=== PATIENT | female | born 2005 | race Caucasian/White ===

== ENCOUNTER 2023-04-13 08:22 | Outpatient (AMB) | payer OTHER, SELFPAY ==
[2023-04-13 08:32] VITALS: BP 116/72; PULSE 81; O2SAT 100; BMI 21.9
--- NOTE | 2023-04-13 08:32 | MHC.PC.OV ---
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 No Known Allergies Allergy (Verified 04/13/23 08:39) Medication List - Last Reconciled 04/13/23 by LARISA Addison cetirizine (Zyrtec) 10 mg PO DAILY PRN norethindrone ac-eth estradiol 0.5-2.5 mg-mcg 1 tab PO DAILY Tobacco use date assessed: 04/13/23 Dental Screening Dental Screen Date: 04/13/23 Did you have a dental visit in the last 12 months?: Yes Did you have a dental problem in the last 6 months where you did not have access to dental care?: No Was dental information given to patient?: Patient has dentist 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 Previous PCP at [facility], last visit couple years ago. Patient is up-to-date with immunizations. She reports eye exam and dental exam in the last year. In addition, patient reports intermittent bilateral ear fullness sensation for the past some time, she reports using Flonase nasal spray in the past which did not help her much. She denies shortness of breath or chest pain. Patient lives with her stepmother and father. She works and go to school. [facility] Medical History No known problems Surgical History No pertinent past surgical history Family History Mother No problems noted. Father No problems noted. Social History Housing: House Patient Tobacco Use Status: Never used Tobacco service: No Current occupational status: employed Cognitive needs: No Hearing needs: No Vision needs: No Questionnaire PHQ-9 Over the last 2 weeks, how often have you been bothered by any of the following problems? 1. Little interest or pleasure in doing things: not at all 2. Feeling down, depressed, or hopeless: not at all 3. Trouble falling or staying asleep, or sleeping too much: not at all 4. Feeling tired or having little energy: not at all 5. Poor appetite or overeating: not at all 6. Feeling bad about yourself - or that you are a failure or have let yourself or your family down: not at all 7. Trouble concentrating on things, such as reading the newspaper or watching television: not at all 8. Moving or speaking so slowly that other people could have noticed. Or the opposite - being so fidgety or restless that you have been moving around a lot more than usual: not at all 9. Thoughts that you would be better off or of hurting yourself in some way: not at all Total score: 0 Depression Screening Interpretation: Negative 11511 - PHQ-9 Billing: Yes Source: Developed by Drs. Sammy Nelson, Yael Abdul, Jeffrey Garcias and colleagues, with an educational naseem from [employer]. Thrive Questionnaire Date Thrive assessed: 04/13/23 I am a: Patient What is your living situation today?: I have a steady place to live Within the past 12 months, did the food you bought not last and you didn't have the money to get more?: Never true Within the past 12 months, did you worry whether your food would run out before you got money to buy more?: Never true Currently or been in a relationship where the following occur: no concerns reported AUDIT C Alcohol Use Questionnaire (AUDIT-C) 1. How often do you have a drink containing alcohol?: Monthly or less 2. How many drinks containing alcohol do you have on a typical day when you are drinking?: 1 or 2 3. How often do you have six or more drinks on one occasion?: Never Total Score: 1 Score Reviewed/Action Taken: No DEYSI-7 AMB Questionnaire DEYSI-7 Date DEYSI - 7 assessed: 04/13/23 Feeling nervous, anxious, or on edge: 0 = Not at all Not being able to stop or control worryin = Not at all Worrying too much about different things: 0 = Not at all Trouble relaxin = Not at all Being so restless that it is hard to sit still: 0 = Not at all Becoming easily annoyed or irritable: 0 = Not at all Feeling afraid as if something awful might happen: 0 = Not at all Total DEYSI-7 score (0-4 normal; 5-9 mild; 10-14 moderate; 15-21 severe): 0 Source: Developed by Drs. Sammy Nelson, Yael Abdul, Jeffrey Garcias and colleagues, with an educational naseem from [employer]. DEYSI-7 Assessment Billing DEYSI-7 Assessment Tool: DEYSI-7 Assessment 36776 Review of Systems Const Denies body aches, Denies chills, Denies fever(s) and Denies headache(s) Eyes Denies change in vision ENT Reports as per HPI, Denies dizziness, Denies otalgia, Denies headache(s), Denies nasal discharge, Denies sinus pain and Denies sore throat Card Denies chest pain, Denies edema, Denies lightheadedness and Denies dyspnea Resp Denies cough, Denies dyspnea and Denies wheezing GI Denies abdominal pain, Denies constipation, Denies diarrhea, Denies nausea and Denies vomiting Denies dysuria Musc Denies myalgias, Denies numbness and Denies tingling Skin/Breast Denies rash Neuro Denies dizziness, Denies headache(s), Denies numbness and Denies tingling Aller/Immun Denies wheezing Physical exam (Primary Care) Vital Signs: Last Vital Signs Pulse 81 04/13/23 08:32 BP 116/72 04/13/23 08:32 Pulse Ox 100 04/13/23 08:32 Oxygen Delivery Method Room Air 04/13/23 08:32 BMI result Body Mass Index 21.9 Tobacco/Smoking Status: Tobacco use Status Tobacco use date assessed 04/13/23 04/13/23 08:37 Patient Tobacco Use Status Never used Tobacco 04/13/23 08:37 PHQ-9: PHQ-9 Score PHQ-9: Total score 0 04/13/23 08:37 Depression Screening Interpretation: Negative Thrive Assessment: Date of Thrive Assessment Date Thrive assessed 04/13/23 04/13/23 08:37 Currently or been in a relationship where the following occur: no concerns reported Const General: cooperative and no acute distress Orientation/consciousness: patient oriented x3 HENMT Other: Bilateral TM moderately obstructed by cerumen R>L, visualized TMs normal Head: Yes normocephalic and Yes atraumatic Face and sinus: Yes sinuses nontender Mouth: oropharynx normal and moist mucous membranes Throat: Yes posterior oropharynx normal Eyes General: appearance normal, both eyes and all related structures Pupils: Equal, round and reactive pupils present EOM: EOMs intact bilaterally Neck Neck: Yes normal visual inspection, Yes full ROM and Yes no lymphadenopathy Thyroid: Thyroid normal Resp Effort & Inspection: normal respiratory effort and able to speak in complete sentences Auscultation: clear to auscultation bilaterally, no crackles, no rales, no rhonchi and no wheezes Cardio Rate: regular rate Rhythm: regular rhythm Heart sounds: S1 normal heart sound present, S2 normal heart sound present and no murmurs GI Palpation (GI): Soft to palpation, not firm, nontender, no guarding, not rigid and no hepatosplenomegaly Auscultation: normal bowel sounds General: No CVA tenderness Back/Spine/Pelvis Back: No CVA tenderness Skin General skin exam: no rashes or lesions noted Neuro General: patient oriented x3 Cranial nerves: Yes Equal, round and reactive pupils present Gait exam (Neuro): Normal gait present Extrem General: Yes full ROM and No edema Assessment and Plan Assessment & Plan (1) Adult general medical exam: Code(s): Z00.00 - Encounter for general adult medical examination without abnormal findings Plan: Repeat in 1 year (2) Seasonal allergies: Code(s): J30.2 - Other seasonal allergic rhinitis Plan: Continue Zyrtec 10 mg daily p.r.n. (3) Sensation of fullness in both ears: Code(s): H93.8X3 - Other specified disorders of ear, bilateral Plan: Bilateral TM moderately obstructed by cerumen R>L, visualized TMs normal Encouraged patient to try [id number] normal saline nasal spray p.r.n. Patient will be back in 2 weeks for bilateral ear lavage Patient agreed with the plan Orders: Orders Vitamin B12 and Folate Today Z00.00 - Encounter for general adult medical examination without abnormal findings Comprehensive Met. Panel Today Z00.00 - Encounter for general adult medical examination without abnormal findings TSH reflex Free T4 Today Z00.00 - Encounter for general adult medical examination without abnormal findings Vitamin D 25-OH Total Today Z00.00 - Encounter for general adult medical examination without abnormal findings Complete Blood Count Auto Diff Today Z00.00 - Encounter for general adult medical examination without abnormal findings Coding Level of Care Code New Pt Prev Care 18-39yr(38516 Diagnoses Adult general medical exam Z00.00 Seasonal allergies J30.2 Sensation of fullness in both ears H93.8X3 Additional Codes DEYSI-7 Assessment Billing - DEYSI-7 Assessment Tool: DEYSI-7 Assessment 49275 ([id number])
== END 2023-04-13 08:55 | disposition home or self-care (01) ==
PROVIDERS: PCP Nurse Practitioner Family; Visit Provider Nurse Practitioner Family
DX: Z00.00 Encounter for general adult medical examination without abnormal findings (principal); J30.2 Other seasonal allergic rhinitis; H93.8X3 Other specified disorders of ear, bilateral
CPT/HCPCS: 99385

== ENCOUNTER 2023-04-22 11:00 | Outpatient (REF) | payer OTHER, SELFPAY ==
[2023-04-22 11:13] LABS: MANUAL DIFF FLAG NO
[2023-04-22 12:06] LABS: Basophils Absolute Auto 0.1 X10*3/uL (0.0-0.2); Basophils Percent Auto 0.6 % (0-2); Eosinophils Absolute Auto 0.1 X10*3/uL (0.0-0.4); Eosinophils Percent Auto 0.6 % (0-4); Hematocrit 37.7 % (37.0-47.0); Imm Gran Abs Auto 0.01 X10*3/uL (0.00-0.03); Imm Gran Pct Auto 0.1 % (0.0-0.4); Lymphocytes Absolute Auto 2.8 X10*3/uL (1.2-4.9); Lymphocytes Percent Auto 34.1 % (20-40); Mean Corpuscular HGB Conc 34.5 g/dl (31.0-35.0); Mean Corpuscular Hemoglobin 31.8 pg (27.0-33.0); Mean Corpuscular Volume 92.2 fL (80.0-98.0); Mean Platelet Volume 10.1 fL (9.4-12.3); Monocytes Absolute Auto 0.8 X10*3/uL (0.1-1.2); Monocytes Percent Auto 9.8 % (2-11); Neutrophils Absolute Auto 4.5 x10*3/uL (2.0-8.3); Neutrophils Percent Auto 54.8 % (45-73); Platelet Count 388 X10*3/uL (160-400); Red Blood Count 4.09 X10*6/uL (4.20-5.50); Red Cell Distribution Width 11.8 % (11.0-16.0); White Blood Count 8.3 X10*3/uL (4.8-10.8)
[2023-04-22 13:28] LABS: Alanine Aminotransferase 10 U/L (0-31); Albumin Level 4.1 g/dL (3.5-5.0); Alkaline Phosphatase 44 U/L (39-117); Anion Gap 12 (12-20); Aspartate Amino Transferase 14 U/L (5-31); Bilirubin Total 0.4 mg/dL (0.0-1.0); Blood Urea Nitrogen 10 mg/dL (9-16); Calcium 9.6 mg/dL (8.4-10.2); Carbon Dioxide 25 mmol/L (22-29); Chloride 107 mmol/L (96-108); Estimated Glomerular Filt Rate > 60; Glucose Random 73 mg/dL (60-115); Potassium 3.8 mmol/L (3.3-5.1); Sodium 140 mmol/L (135-145); Total Protein 6.9 g/dL (6.5-8.0)
[2023-04-22 13:34] LABS: TSH reflex Free T4 1.23 uIU/mL (0.32-4.0); Vitamin D 25-OH Total 49.4 ng/mL (>30)
[2023-04-22 14:03] LABS: Folate 13.6 ng/mL (> or = 4.0); Vitamin B12 239 pg/mL (200-900)
== END 2023-04-22 11:01 | disposition home or self-care (01) ==
LOC: HO.LAB 11:00
PROVIDERS: PCP Nurse Practitioner Family; Visit Provider Nurse Practitioner Family
DX: Z00.00 Encounter for general adult medical examination without abnormal findings (principal); J30.2 Other seasonal allergic rhinitis; H93.8X3 Other specified disorders of ear, bilateral
CPT/HCPCS: 36415; 80053; 82306; 82607; 82746; 84443; 85025

== ENCOUNTER 2023-04-29 14:23 | Outpatient (AMB) | payer OTHER, SELFPAY ==
[2023-04-29 14:30] VITALS: BP 102/68; PULSE 87; O2SAT 99; BMI 21.8
--- NOTE | 2023-04-29 14:30 | A.OFFPC_ITS ---
Vital Signs 04/29/23 14:30 Height 5 ft 7 in Weight 139 lb BMI 21.8 BP 102/68 Blood Pressure Location Lt brachial Position Sitting Pulse 87 Pulse Source Pulse Oximeter Temp Source Skin Pulse Oximetry (%) 99 Oxygen Delivery Method Room Air Intake Visit Reasons: 2 week f/u ear flush Ophthalmic Assistant Required: No Allergies No Known Allergies Allergy (Verified 04/29/23 14:54) Medication List - Last Reconciled 04/29/23 by LARISA Addison cetirizine (Zyrtec) 10 mg PO DAILY PRN norethindrone ac-eth estradiol 0.5-2.5 mg-mcg 1 tab PO DAILY Tobacco use date assessed: 04/29/23 Dental Screening Dental Screen Date: 04/29/23 HPI 2 week f/u ear flush HPI Details Patient is a 17-year-old female presents today for bilateral ear flush. Reports bilateral ear blocked sensation for the past some time now. Denies pain in her ears. No shortness of breath or chest pain. [facility] Medical History No known problems Surgical History No pertinent past surgical history Family History Mother No problems noted. Father No problems noted. Social History Housing: House Patient Tobacco Use Status: Never used Tobacco service: No Current occupational status: employed Cognitive needs: No Hearing needs: No Vision needs: No Questionnaire Thrive Questionnaire Date Thrive assessed: 04/13/23 AUDIT C Alcohol Use Questionnaire (AUDIT-C) 1. How often do you have a drink containing alcohol?: Monthly or less 2. How many drinks containing alcohol do you have on a typical day when you are drinking?: 1 or 2 3. How often do you have six or more drinks on one occasion?: Never Total Score: 1 Score Reviewed/Action Taken: No DEYSI-7 AMB Questionnaire DEYSI-7 Date DEYSI - 7 assessed: 04/13/23 Source: Developed by Drs. Sammy Nelson, Yael Abdul, Jeffrey Garcias and colleagues, with an educational naseem from [employer]. Review of Systems Const Denies body aches, Denies chills, Denies fever(s) and Denies headache(s) Eyes Denies change in vision ENT Reports as per HPI, Denies dizziness, Denies otalgia, Denies headache(s), Denies nasal discharge, Denies sinus pain and Denies sore throat Card Denies chest pain, Denies edema, Denies lightheadedness and Denies dyspnea Resp Denies cough, Denies dyspnea and Denies wheezing GI Denies abdominal pain Denies dysuria Musc Denies myalgias Skin/Breast Denies rash Neuro Denies dizziness and Denies headache(s) Aller/Immun Denies wheezing Physical exam (Primary Care) Vital Signs: Last Vital Signs Pulse 87 04/29/23 14:30 BP 102/68 04/29/23 14:30 Pulse Ox 99 04/29/23 14:30 Oxygen Delivery Method Room Air 04/29/23 14:30 BMI result Body Mass Index 21.8 Tobacco/Smoking Status: Tobacco use Status Tobacco use date assessed 04/29/23 04/29/23 14:31 Patient Tobacco Use Status Never used Tobacco 04/29/23 14:31 Thrive Assessment: Date of Thrive Assessment Date Thrive assessed 04/13/23 04/29/23 14:31 Const General: cooperative and no acute distress Orientation/consciousness: patient oriented x3 HENMT Other: Bilateral TM moderately obstructed by cerumen R>L, status post bilateral ear lavage bilateral TM normal, very mild cerumen noted to bilateral ear canal sides, patient tolerated well Head: Yes normocephalic and Yes atraumatic Throat: Yes posterior oropharynx normal Eyes General: appearance normal, both eyes and all related structures Neck Neck: Yes normal visual inspection and Yes full ROM Resp Effort & Inspection: normal respiratory effort and able to speak in complete sentences Auscultation: clear to auscultation bilaterally, no crackles, no rales, no rhonchi and no wheezes Cardio Rate: regular rate Rhythm: regular rhythm Heart sounds: S1 normal heart sound present and S2 normal heart sound present GI Auscultation: normal bowel sounds Skin General skin exam: no rashes or lesions noted Neuro General: patient oriented x3 Gait exam (Neuro): Normal gait present Extrem General: Yes full ROM Office Procedures Cerumen Removal From which ear canal was the cerumen removed: bilateral Removal: irrigation Notes: patient tolerated procedure well, no complications and ear canal clear (status post bilateral ear lavage bilateral TM normal, very mild cerumen noted to bilateral ear canal sides, patient tolerated well) [id number] Irrigation/Lavage Assessment and Plan Assessment & Plan (1) Sensation of fullness in both ears: Code(s): H93.8X3 - Other specified disorders of ear, bilateral Plan: Status post bilateral ear lavage bilateral TM normal, very mild cerumen noted to bilateral ear canal sides, patient tolerated well. Patient reports that she feels that there is some water in her ears, encouraged patient to monitor her symptoms and notify office if no improvement in sensation in her ears by the end of next week. No bilateral TM erythema, no need for antibiotic. (2) control counseling: Code(s): Z30.09 - Encounter for other general counseling and advice on contraception Plan: Gynecology referral Orders: Referrals SPECIFICATION WRITER Referral Z30.09 - Encounter for other general counseling and advice on contraception Coding Level of Care Code Est Pt Level 3 (32321) Diagnoses Sensation of fullness in both ears H93.8X3 control counseling Z30.09 CPT Codes Office Procedure - CPT: 34156-Tgt Irrigation/Lavage ([id number])
== END 2023-04-29 15:13 | disposition home or self-care (01) ==
PROVIDERS: PCP Nurse Practitioner Family; Visit Provider Nurse Practitioner Family
DX: H93.8X3 Other specified disorders of ear, bilateral (principal); H61.23 Impacted cerumen, bilateral
CPT/HCPCS: 69209; 99213

== ENCOUNTER 2023-06-10 11:33 | Outpatient (AMB) | payer OTHER, SELFPAY ==
[2023-06-10 11:37] VITALS: BP 118/60; PULSE 90; O2SAT 100; BMI 21.1
--- NOTE | 2023-06-10 11:37 | A.OFFPC_ITS ---
Vital Signs 06/10/23 11:37 Height 5 ft 7 in Weight 135 lb BMI 21.1 BP 118/60 Blood Pressure Location Lt brachial Position Sitting Pulse 90 Pulse Source Pulse Oximeter Temp Source Skin Pulse Oximetry (%) 100 Oxygen Delivery Method Room Air Intake Visit Reasons: Follow up after ear flush Allergies No Known Allergies Allergy (Verified 06/10/23 11:43) Medication List - Last Reconciled 06/10/23 by LARISA Addison cetirizine (Zyrtec) 10 mg PO DAILY PRN norethindrone ac-eth estradiol 0.5-2.5 mg-mcg 1 tab PO DAILY Tobacco use date assessed: 06/10/23 Dental Screening Dental Screen Date: 06/10/23 Did you have a dental visit in the last 12 months?: Yes Did you have a dental problem in the last 6 months where you did not have access to dental care?: No Was dental information given to patient?: Patient has dentist HPI Follow up after ear flush HPI Details Patient is a 17-year-old female who presents today for an office visit due to bilateral ear blocked sensation for long time now. Patient was seen 1 month ago for bilateral ear flush although she still continues with blocked sensation and fullness sensation in her ears which is intermittent. Reports intermittent nasal discharge very mild. She has been using Zyrtec with no much improvement. No fever no chills, denies ear pain. [facility] Medical History No known problems Surgical History No pertinent past surgical history Family History Mother No problems noted. Father No problems noted. Social History Housing: House Patient Tobacco Use Status: Never used Tobacco service: No Current occupational status: employed Cognitive needs: No Hearing needs: No Vision needs: No Questionnaire Thrive Questionnaire Date Thrive assessed: 04/13/23 AUDIT C Alcohol Use Questionnaire (AUDIT-C) 1. How often do you have a drink containing alcohol?: Monthly or less 2. How many drinks containing alcohol do you have on a typical day when you are drinking?: 1 or 2 3. How often do you have six or more drinks on one occasion?: Never Total Score: 1 Score Reviewed/Action Taken: No DEYSI-7 AMB Questionnaire DEYSI-7 Date DEYSI - 7 assessed: 04/13/23 Source: Developed by Drs. Sammy Nelson, Yael Abdul, Jeffrey Garcias and colleagues, with an educational naseem from [employer]. Review of Systems Const Denies body aches, Denies chills, Denies fever(s) and Denies headache(s) ENT Reports as per HPI, Denies dizziness, Denies otalgia, Denies headache(s), Reports nasal discharge, Denies sinus pain and Denies sore throat Card Denies chest pain, Denies edema, Denies lightheadedness and Denies dyspnea Resp Denies cough, Denies dyspnea and Denies wheezing GI Denies abdominal pain Denies dysuria Musc Denies myalgias Skin/Breast Denies rash Neuro Denies dizziness and Denies headache(s) Aller/Immun Denies wheezing Physical exam (Primary Care) Vital Signs: Last Vital Signs Pulse 90 06/10/23 11:37 BP 118/60 06/10/23 11:37 Pulse Ox 100 06/10/23 11:37 Oxygen Delivery Method Room Air 06/10/23 11:37 BMI result Body Mass Index 21.1 Tobacco/Smoking Status: Tobacco use Status Tobacco use date assessed 06/10/23 06/10/23 11:40 Patient Tobacco Use Status Never used Tobacco 06/10/23 11:40 Thrive Assessment: Date of Thrive Assessment Date Thrive assessed 04/13/23 06/10/23 11:40 Const General: cooperative and no acute distress Orientation/consciousness: patient oriented x3 HENMT Other: Very mild earwax noted on the sides of bilateral ear canal, no need for ear irrigation Head: Yes normocephalic and Yes atraumatic Ears: TM's normal bilaterally Mouth: oropharynx normal and moist mucous membranes Throat: Yes posterior oropharynx normal Eyes General: appearance normal, both eyes and all related structures Neck Neck: Yes normal visual inspection and Yes full ROM Resp Effort & Inspection: normal respiratory effort and able to speak in complete sentences Auscultation: clear to auscultation bilaterally, no crackles, no rales, no rhonchi and no wheezes Cardio Rate: regular rate Rhythm: regular rhythm Heart sounds: S1 normal heart sound present and S2 normal heart sound present GI Auscultation: normal bowel sounds Skin General skin exam: no rashes or lesions noted Neuro General: patient oriented x3 Gait exam (Neuro): Normal gait present Extrem General: Yes full ROM Assessment and Plan Assessment & Plan (1) Sensation of fullness in both ears: Code(s): H93.8X3 - Other specified disorders of ear, bilateral Plan: No bilateral TM erythema Patient is to continue Zyrtec daily p.r.n. and start Flonase nasal spray daily for 14 days ENT referral for an evaluation and treatment Orders: Referrals Ear/Nose/Throat Referral H93.8X3 - Other specified disorders of ear, bilateral Medications: New fluticasone propionate 50 mcg/actuation (Flonase Allergy Relief) administer into each nostril 1 spray intranasal DAILY 14 days 100 mL 0RF H93.8X3 - Other specified disorders of ear, bilateral Coding Level of Care Code Est Pt Level 3 (88017) Diagnoses Sensation of fullness in both ears H93.8X3
== END 2023-06-10 11:52 | disposition home or self-care (01) ==
PROVIDERS: PCP Nurse Practitioner Family; Visit Provider Nurse Practitioner Family
DX: H93.8X3 Other specified disorders of ear, bilateral (principal)
CPT/HCPCS: 99213

== ENCOUNTER 2024-01-10 07:15 | Outpatient (REF) | payer OTHER, SELFPAY ==
--- NOTE | ~2024-01-10 | CT_ITS ---
CT SINUS WITHOUT CONTRAST CLINICAL INFORMATION: Sinonasal polyps. Headache. COMPARISON: None available. TECHNIQUE: A multidetector CT acquisition of the sinuses is obtained without contrast. This CT examination was performed using dose optimization techniques as appropriate, variously including the following: *Automated exposure control *Adjustment of mA and/or kV according to patient size (this includes techniques or standardized protocols for targeted exams where dose is matched to indication/reason for exam; i.e. extremities or head) *Use of iterative reconstruction technique FINDINGS: There is mild mucosal thickening within the maxillary sinuses bilaterally. The sphenoid sinuses, ethmoid air cells, and frontal sinuses are clear. There is no polypoid soft tissue within the nasal cavities. There is rightward deviation of the nasal septum. Rhonda bullosa within the left middle turbinate. Pneumatization of the optic struts and anterior clinoid processes bilaterally. The left olfactory groove shares a contiguous slope of the left fovea ethmoidalis. The bony orbits are intact. The mastoid air cells and middle ear cavities are clear. The internal carotid arteries remain well covered with bone. No periapical disease is appreciated. The TMJs are unremarkable. No significant soft tissue findings. CT/CT sinus wo IV con IMPRESSION: - There is mild mucosal thickening within the maxillary sinuses bilaterally and the remaining paranasal sinuses are clear. There is no polypoid soft tissue within the nasal cavities. - There is rightward deviation of the nasal septum. Rhonda bullosa within the left middle tur
== END 2024-01-10 07:16 | disposition home or self-care (01) ==
LOC: HO.CT 07:15
PROVIDERS: Visit Provider Otolaryngology
DX: J33.0 Polyp of nasal cavity (principal); G44.219 Episodic tension-type headache, not intractable
CPT/HCPCS: 70486

== ENCOUNTER 2024-04-19 09:21 | Outpatient (AMB) | payer OTHER, SELFPAY ==
[2024-04-19 09:31] VITALS: BP 90/80; PULSE 86; O2SAT 99; BMI 20.7
--- NOTE | 2024-04-19 09:31 | A.OFFPC_ITS ---
Vital Signs 04/19/24 09:31 Height 5 ft 7 in Weight 132 lb 0.8 oz BMI 20.7 BP 90/80 Blood Pressure Location Lt brachial Position Sitting Pulse 86 Pulse Source Pulse Oximeter Pulse Oximetry (%) 99 Oxygen Delivery Method Room Air Intake Visit Reasons: PHYSICAL History Faculty Member Required: No Allergies No Known Allergies Allergy (Verified 04/19/24 09:52) Medication List - Last Reconciled 04/19/24 by Lynnette Meraz PA-C cetirizine (Zyrtec) 10 mg PO DAILY PRN drospirenone (contraceptive) (Slynd) 1 tab PO DAILY fluticasone propionate 50 mcg/actuation (Flonase Allergy Relief) 1 spray intranasal DAILY 14 days magnesium 250 mg PO DAILY polyethylene glycol 3350 (Miralax) 17 grams PO DAILY tretinoin 0.025% 1 appl topical BEDTIME Tobacco use date assessed: 04/19/24 Dental Screening Dental Screen Date: 04/19/24 Did you have a dental visit in the last 12 months?: Yes Did you have a dental problem in the last 6 months where you did not have access to dental care?: No Was dental information given to patient?: Patient has dentist HPI PHYSICAL HPI Details 18-year-old female with no past medical history last seen by nurse practitioner 05/2023 coming in for annual visit.? In review of the notes, patient had sinuses CT 01/29/2024 which found no evidence of polyps and slight rightward deviation of the nasal septum. Patient is not regularly seen by gynecology and [facility] Today she mentioned she had been previously using a topical retinoid for management of acne which has stopped working. She also mentioned she has occasional stomach pain after eating that is worse at night and is typically in the epigastric and suprapubic area. She also mentioned she struggles with constipation and has trialed increasing her fiber with little improvement. [facility] Medical History No known problems Surgical History [place] teeth extracted No pertinent past surgical history Family History Mother No problems noted. Father No problems noted. Maternal Grandmother Breast cancer Social History Housing: House Patient Tobacco Use Status: Never used Tobacco service: No Current occupational status: employed Cognitive needs: No Hearing needs: No Vision needs: No Female Reproductive History Menstrual control method: pills History of abnormal pap smear: No History of STI: No Questionnaire PHQ-9 Over the last 2 weeks, how often have you been bothered by any of the following problems? 1. Little interest or pleasure in doing things: not at all 2. Feeling down, depressed, or hopeless: not at all 3. Trouble falling or staying asleep, or sleeping too much: not at all 4. Feeling tired or having little energy: not at all 5. Poor appetite or overeating: not at all 6. Feeling bad about yourself - or that you are a failure or have let yourself or your family down: not at all 7. Trouble concentrating on things, such as reading the newspaper or watching television: not at all 8. Moving or speaking so slowly that other people could have noticed. Or the opposite - being so fidgety or restless that you have been moving around a lot more than usual: not at all 9. Thoughts that you would be better off or of hurting yourself in some way: not at all Total score: 0 Depression Screening Interpretation: Negative Depression Screening Done: Yes 18267 - PHQ-9 Billing: Yes Source: Developed by Drs. Sammy Nelson, Yael Abdul, Jeffrey Garcias and colleagues, with an educational naseem from [employer]. Thrive Questionnaire Date Thrive assessed: 04/19/24 I am a: Patient What is your living situation today?: I have a steady place to live Within the past 12 months, did the food you bought not last and you didn't have the money to get more?: Never true Within the past 12 months, did you worry whether your food would run out before you got money to buy more?: Never true Do you have trouble paying for medicines?: No Do you have trouble getting transportation to medical appointments?: No Do you have trouble paying your heating and electricity bill?: No Do you have trouble taking care of your child, family member or friend?: No Do you have trouble with day-to-day activities such as bathing, preparing meals, shopping, managing finances, etc.?: No Are you currently unemployed and looking for a job?: No Are you interested in more education?: No Please select the resources that you would like help with: None Currently or been in a relationship where the following occur: No concerns reported THRIVE Score: 0 AUDIT C Alcohol Use Questionnaire (AUDIT-C) 1. How often do you have a drink containing alcohol?: Monthly or less 2. How many drinks containing alcohol do you have on a typical day when you are drinking?: 1 or 2 3. How often do you have six or more drinks on one occasion?: Never Total Score: 1 Score Reviewed/Action Taken: No DEYSI-7 AMB Questionnaire DEYSI-7 Date DEYSI - 7 assessed: 04/19/24 Feeling nervous, anxious, or on edge: 0 = Not at all Not being able to stop or control worryin = Not at all Worrying too much about different things: 0 = Not at all Trouble relaxin = Not at all Being so restless that it is hard to sit still: 0 = Not at all Becoming easily annoyed or irritable: 0 = Not at all Feeling afraid as if something awful might happen: 0 = Not at all Total DEYSI-7 score (0-4 normal; 5-9 mild; 10-14 moderate; 15-21 severe): 0 Source: Developed by Drs. Sammy Nelson, Yael Abdul, Jeffrey Garcias and colleagues, with an educational naseem from [employer]. DEYSI-7 Assessment Billing DEYSI-7 Assessment Tool: DEYSI-7 Assessment 19283 Review of Systems Const Denies body aches, Denies fatigue, Denies fever(s), Denies frequent falls, Reports headache(s) (takes magnesium ) and Denies weakness Eyes Reports no additional complaints and Denies change in vision ENT Denies dysphagia, Denies dizziness, Denies facial pain, Reports headache(s) (takes magnesium ), Denies nasal congestion and Denies odynophagia Card Denies chest pain, Denies syncope, Denies irregular heart rhythm, Denies leg edema, Denies lightheadedness and Denies dyspnea Resp Denies cough and Denies dyspnea GI Reports as per HPI, Reports constipation, Denies dysphagia, Denies dyspepsia, Denies diarrhea, Reports nausea (With migraines), Denies odynophagia and Denies vomiting Denies urinary frequency, Denies dysuria, Denies urinary hesitancy and Denies urinary urgency Musc Denies back pain and Denies myalgias Skin/Breast Reports as per HPI Neuro Denies dizziness, Denies syncope, Denies frequent falls, Reports headache(s) (takes magnesium ) and Denies weakness Psych Reports no additional complaints Endo Denies fatigue Physical exam (Primary Care) Vital Signs: Last Vital Signs Pulse 86 04/19/24 09:31 BP 90/80 04/19/24 09:31 Pulse Ox 99 04/19/24 09:31 Oxygen Delivery Method Room Air 04/19/24 09:31 BMI result Body Mass Index 20.7 Tobacco/Smoking Status: Tobacco use Status Tobacco use date assessed 04/19/24 04/19/24 09:32 Patient Tobacco Use Status Never used Tobacco 04/19/24 09:32 PHQ-9: PHQ-9 Score PHQ-9: Total score 0 04/19/24 09:39 Depression Screening Interpretation: Negative Thrive Assessment: Date of Thrive Assessment Date Thrive assessed 04/19/24 04/19/24 09:32 Currently or been in a relationship where the following occur: No concerns reported Const General: cooperative, healthy appearing, comfortable and no acute distress Orientation/consciousness: patient oriented x3 HENMT Head: Yes normocephalic Ears: hearing grossly normal bilaterally, external ears normal, TM's normal bilaterally and EAC's normal General nose exam: Normal external nose present Face and sinus: Yes normal facial exam and Yes sinuses nontender Mouth: Normal oral and palatal mucosa present and tongue normal Throat: Yes posterior oropharynx normal Eyes General: appearance normal, both eyes and all related structures Conjunctivae: conjunctivae normal Pupils: Equal, round and reactive pupils present EOM: EOMs intact bilaterally and No Nystagmus present Neck Neck: Yes normal visual inspection, Yes full ROM and Yes no lymphadenopathy Chest Chest palpation & inspection: normal inspection of the chest Resp Effort & Inspection: normal respiratory effort Auscultation: clear to auscultation bilaterally, no crackles, no rales, no rhonchi, no wheezes and breath sounds present Cardio Rate: regular rate Rhythm: regular rhythm Peripheral pulses: radial pulses present and dorsalis pedis present GI Inspection: Yes normal to inspection and No Abdominal wall edema Palpation (GI): Soft to palpation, not firm, Tenderness to palpation present (GI) in the LLQ and suprapubicly, no guarding, not rigid and No Rebound tenderness present Auscultation: normal bowel sounds Rectal Exam - Female: deferred General: Yes no CVA tenderness Back/Spine/Pelvis Back: no CVA tenderness Skin Other: Multiple inflamed papules and pustules on the face Neuro General: patient oriented x3 Cranial nerves: Yes Equal, round and reactive pupils present, Yes Midline tongue present, Yes Ability to bilaterally elevate shoulders present and No Nystagmus present Gait exam (Neuro): Normal gait present Extrem General: Yes normal to inspection, Yes full ROM, No no pedal edema and No edema Psych Speech and movement: Normal speech and movement present Affect: normal affect Insight: Good insight present (Psych) Judgement: Good judgement present (Psych) Assessment and Plan Assessment & Plan (1) Adult general medical exam: Code(s): Z00.00 - Encounter for general adult medical examination without abnormal findings Plan: Patient is not up-to-date on annual Pap smears and was referred to Gynecology. Updated blood work sent to the lab to be completed by patient. We will follow up in 3 months for follow up on constipation and then annually. She is up-to-date on all other routine screenings and vaccinations for her age. (2) Suprapubic pain: Code(s): R10.2 - Pelvic and perineal pain Plan: Patient states she has pain after eating in the suprapubic and epigastric area. She has tried various elimination diets with initial improvement however she finds the pain typically returns after a few weeks. She also mentions pain will improve with burping. Denies any reflux symptoms. We can trial simethicone for gas and follow up in 3 months. Patient had pain to deep palpation in suprapubic area on exam today. Denies any pain with urination or burning sensation. Denies chance of . We will order for urinalysis and urine for further evaluation. (3) Constipation: Code(s): K59.00 - Constipation, unspecified Plan: Patient states she has issues with chronic constipation and has tried [id number] fiber with little improvement. We will trial MiraLax at this time. (4) Migraines: Code(s): G43.909 - Migraine, unspecified, not intractable, without status migrainosus Plan: Patient has a history of migraines and is on daily magnesium for prevention. She does mention she has breakthrough migraines when she misses a dose. The headache is typically managed successfully with ibuprofen however she does continue to have nausea which is a bothersome symptom. Prescription for Zofran sent to pharmacy to be used as needed for nausea related to migraines. (5) Acne vulgaris: Code(s): L70.0 - Acne vulgaris Plan: Patient has a history of acne vulgaris and was previously using [id number] creams and face washes with no success. She did find success using Adapalene however this is no longer effective. We will trial topical tretinoin. Urine sent to the lab to be done prior to starting this medication. Advised patient to use protection with intercourse and if she becomes she must stop his medication as it is not recommended for . Declined referral to Dermatology. Plan This note was constructed using voice recognition software. While every effort has been made to ensure accuracy and railroad inspector, still areas may have been included sometimes these areas may affect the content or meeting of the given symptoms. Total time spent caring for the patient today was 35 minutes. This includes time spent before the visit reviewing the chart, time spent during the visit, and time spent after the visit and documentation. Orders: Orders UA CC w/rflx Micro + Cult Today R10.2 - Pelvic and perineal pain Complete Blood Count Auto Diff Today Z00.00 - Encounter for general adult medical examination without abnormal findings Comprehensive Met. Panel Today Z00.00 - Encounter for general adult medical examination without abnormal findings Free T4 (Free Thyroxine) Today Z00.00 - Encounter for general adult medical examination without abnormal findings TSH reflex Free T4 Today Z00.00 - Encounter for general adult medical examination without abnormal findings Vitamin B12 and Folate Today Z00.00 - Encounter for general adult medical examination without abnormal findings Vitamin D 25-OH (D2 and D3) Today Z00.00 - Encounter for general adult medical examination without abnormal findings Ur Preg Test Today R10.2 - Pelvic and perineal pain Referrals EYE PHYSICIAN Referral Z00.00 - Encounter for general adult medical examination without abnormal findings, Z12.4 - Encounter for screening for malignant neoplasm of cervix Medications: New polyethylene glycol 3350 (Miralax) 17 grams PO DAILY 119 grams 1RF tretinoin 0.025% 1 appl topical BEDTIME 20 grams 0RF ondansetron 4 mg PO Q8H PRN 14 tabs 0RF nausea and vomiting Coding Level of Care Code Est Pt Level 3 (58623) Est Pt Prev Care 18-39y(56982) Diagnoses Adult general medical exam Z00.00 Suprapubic pain R10.2 Constipation K59.00 Migraines G43.909 Acne vulgaris L70.0 Additional Codes DEYSI-7 Assessment Billing - DEYSI-7 Assessment Tool: DEYSI-7 Assessment 33416 ([id number])
== END 2024-04-19 10:20 | disposition home or self-care (01) ==
DX: Z00.00 Encounter for general adult medical examination without abnormal findings (principal); R10.2 Pelvic and perineal pain; K59.00 Constipation, unspecified; G43.909 Migraine, unspecified, not intractable, without status migrainosus; L70.0 Acne vulgaris
CPT/HCPCS: 99213; 99395

== ENCOUNTER 2024-04-20 08:15 | Outpatient (REF) | payer OTHER, SELFPAY ==
[2024-04-20 08:36] LABS: MANUAL DIFF FLAG NO
[2024-04-20 08:40] LABS: Basophils Percent Auto 0.5 % (0-2); Eosinophils Absolute Auto 0.1 X10*3/uL (0.0-0.4); Eosinophils Percent Auto 0.9 % (0-4); Hematocrit 37.6 % (37.0-47.0); Hemoglobin 12.8 g/dl (12.0-16.0); Imm Gran Abs Auto 0.02 X10*3/uL (0.00-0.03); Imm Gran Pct Auto 0.3 % (0.0-0.4); Lymphocytes Absolute Auto 2.3 X10*3/uL (1.2-4.9); Lymphocytes Percent Auto 30.4 % (20-40); Mean Corpuscular Hemoglobin 31.2 pg (27.0-33.0); Mean Corpuscular Volume 91.7 fL (80.0-98.0); Monocytes Absolute Auto 0.6 X10*3/uL (0.1-1.2); Monocytes Percent Auto 7.7 % (2-11); Neutrophils Absolute Auto 4.5 x10*3/uL (2.0-8.3); Neutrophils Percent Auto 60.2 % (45-73); Platelet Count 283 X10*3/uL (160-400); Red Cell Distribution Width 11.7 % (11.0-16.0); White Blood Count 7.5 X10*3/uL (4.8-10.8)
[2024-04-20 09:28] LABS: Alanine Aminotransferase 12 U/L (0-31); Albumin Level 4.6 g/dL (3.5-5.0); Alkaline Phosphatase 54 U/L (39-117); Anion Gap 11 (12-20); Aspartate Amino Transferase 14 U/L (5-31); Bilirubin Total 0.6 mg/dL (0.0-1.0); Blood Urea Nitrogen 13 mg/dL (9-16); Calcium 10.1 mg/dL (8.4-10.2); Carbon Dioxide 28 mmol/L (22-29); Chloride 106 mmol/L (96-108); Estimated Glomerular Filt Rate > 60; Glucose Random 74 mg/dL (60-115); Sodium 141 mmol/L (135-145); Total Protein 7.2 g/dL (6.5-8.0)
[2024-04-20 10:11] LABS: Free T4 (Free Thyroxine) 0.89 ng/dL (0.71-1.85); TSH reflex Free T4 1.69 uIU/mL (0.32-4.0)
[2024-04-20 10:16] LABS: Appearance Urine Clear; Color Urine Yellow; Glucose Urine UA Negative (Negative); Leukocyte Esterase Urine Small (1+) (Negative); Nitrite Urine Negative (Negative); Specific Gravity - Urine <= 1.005 (1.005-1.025); UMIC TRIGGER UACC YES; Urine Blood Small (1+) (Negative); Urine Ketones Negative (Negative); Urine Protein Negative (Neg-Trace)
[2024-04-20 10:20] LABS: Urine Pregnancy NEGATIVE (NEGATIVE)
[2024-04-20 10:21] LABS: UPreg QC Valid YES
[2024-04-20 10:26] LABS: Bacteria Urine 1+ (None Seen); Hyaline Casts Urine 0-2 /LPF (0-2); RBC Urine 0-2 /HPF (0-2); Squamous Epithelial Cell Urine 0-2 /HPF (0-2); UACC Culture Trigger YES; WBC Urine 0-5 /HPF (0-5)
[2024-04-20 10:29] LABS: Folate 10.9 ng/mL (> or = 4.0); Vitamin B12 241 pg/mL (200-900)
[2024-04-26 12:48] LABS: Vitamin D 25-OH, D2 <4 ng/mL; Vitamin D 25-OH, D3 35 ng/mL; Vitamin D 25-OH, Total 35 ng/mL (30-100)
== END 2024-04-20 08:16 | disposition home or self-care (01) ==
LOC: HO.LAB 08:15
DX: Z00.00 Encounter for general adult medical examination without abnormal findings (principal); R10.2 Pelvic and perineal pain
CPT/HCPCS: 36415; 80053; 81001; 81025; 82306; 82607; 82746; 84439; 84443; 85025; 87086; 87088; 87186

== ENCOUNTER 2024-09-03 08:29 | Outpatient (AMB) | payer OTHER, SELFPAY ==
--- OUTSIDE RECORDS SUMMARY | 2024-09-03 08:31 | XMS_ITS ---
Author Name [facility] Organization Unknown Assessment and Plan ID Update Date Source Alert Text [facility] - [id number] 06/10/2024 [facility] - [id number] COVID Vaccination: This patient has received the [employer] COVID-19 vaccination on 06/10/2024 with lot number [id number] at [facility] [address]
[2024-09-03 08:41] VITALS: BP 124/62; PULSE 117; O2SAT 100; BMI 20.7
--- NOTE | 2024-09-03 08:41 | A.OFFPC_ITS ---
Vital Signs 09/03/24 08:41 Height 5 ft 7 in Weight 132 lb 4 oz BMI 20.7 BP 124/62 Blood Pressure Location Lt brachial Position Sitting Pulse 117 H Pulse Source Pulse Oximeter Pulse Oximetry (%) 100 Oxygen Delivery Method Room Air Intake Visit Reasons: f/u constipation Allergies No Known Allergies Allergy (Verified 09/03/24 08:44) Medication List - Last Reconciled 09/03/24 by Lynnette Meraz PA-C cetirizine (Zyrtec) 10 mg PO DAILY PRN drospirenone (contraceptive) (Slynd) 1 tab PO DAILY fluticasone propionate 50 mcg/actuation (Flonase Allergy Relief) 1 spray intranasal DAILY 14 days magnesium 250 mg PO DAILY ondansetron 4 mg PO Q8H PRN polyethylene glycol 3350 (Miralax) 17 grams PO DAILY tretinoin 0.025% 1 appl topical BEDTIME Tobacco use date assessed: 09/03/24 Dental Screening Dental Screen Date: 04/19/24 HPI f/u constipation HPI Details 19-year-old female with no significant p ast medical history last seen April 2024 coming in for follow up. Patient tells us she feels the MiraLax has not been working for the constipation. She has been using coffee as a stimulant and she has seeds in water to help with her bowel movements and has been having a bowel movement daily. She does state when she misses either the cheese seeds or the coffee she will feel constipated. She does use magnesium daily for the migraines and finds this helpful. She lost her glasses several weeks ago and as a result has been having increased migraines. The cream for her acne has been working but feels she is building and tolerance to it. Lastly she mentioned she has been having increased difficulty with concentrating and states she has been losing lots of objects. [facility] Medical History No known problems Surgical History [place] teeth extracted No pertinent past surgical history Family History Mother No problems noted. Father No problems noted. Maternal Grandmother Breast cancer Social History Housing: House Patient Tobacco Use Status: Never used Tobacco service: No Current occupational status: employed Cognitive needs: No Hearing needs: No Vision needs: No Questionnaire Thrive Questionnaire Date Thrive assessed: 04/19/24 AUDIT C Alcohol Use Questionnaire (AUDIT-C) 2. How many drinks containing alcohol do you have on a typical day when you are drinking?: 3 or 4 3. How often do you have six or more drinks on one occasion?: Never Total Score: 1 DEYSI-7 AMB Questionnaire DEYSI-7 Date DEYSI - 7 assessed: 04/19/24 Source: Developed by Drs. Sammy Nelson, Yael Abdul, Jeffrey Garcias and colleagues, with an educational naseem from [employer]. Review of Systems Const Denies body aches, Denies chills, Denies fever(s), Reports headache(s) and Denies poor appetite Eyes Reports no additional complaints ENT Denies dizziness and Reports headache(s) Card Denies chest pain, Denies syncope, Denies edema, Denies irregular heart rhythm, Denies lightheadedness and Denies dyspnea Resp Denies cough and Denies dyspnea GI Denies abdominal pain, Reports constipation, Denies diarrhea, Denies nausea and Denies vomiting Reports no additional complaints Musc Reports no additional complaints and Denies abnormal gait Skin/Breast Reports system reviewed and no additional complaints, except as documented Neuro Denies abnormal gait, Denies dizziness, Denies syncope and Reports headache(s) Psych Reports no additional complaints Physical exam (Primary Care) Vital Signs: Last Vital Signs Pulse 117 H 09/03/24 08:41 BP 124/62 09/03/24 08:41 Pulse Ox 100 09/03/24 08:41 Oxygen Delivery Method Room Air 09/03/24 08:41 BMI result Body Mass Index 20.7 Tobacco/Smoking Status: Tobacco use Status Tobacco use date assessed 09/03/24 09/03/24 08:44 Patient Tobacco Use Status Never used Tobacco 09/03/24 08:44 Thrive Assessment: Date of Thrive Assessment Date Thrive assessed 04/19/24 09/03/24 08:44 Const General: cooperative, healthy appearing, comfortable and no acute distress Orientation/consciousness: patient oriented x3 HENMT Head: Yes normocephalic Ears: hearing grossly normal bilaterally General nose exam: Normal external nose present Eyes General: appearance normal, both eyes and all related structures Conjunctivae: conjunctivae normal Neck Neck: Yes full ROM and Yes no lymphadenopathy Resp Effort & Inspection: normal respiratory effort Auscultation: clear to auscultation bilaterally, no crackles, no rales, no rhonchi and no wheezes Cardio Rate: regular rate Rhythm: regular rhythm Skin General skin exam: no rashes or lesions noted Neuro General: patient oriented x3 Gait exam (Neuro): Normal gait present Extrem General: Yes normal to inspection, Yes full ROM and No edema Psych Affect: normal affect Attitude: cooperative Insight: Good insight present (Psych) Judgement: Good judgement present (Psych) Coding Level of Care Code Est Pt Level 4 (32981) Diagnoses Constipation K59.00 Migraines G43.909 Acne vulgaris L70.0 Difficulty concentrating R41.840 Assessment & Plan Assessment & Plan (1) Constipation: Code(s): K59.00 - Constipation, unspecified Category: Medical Plan: Patient currently using she is he is with water and coffee as her laxatives. Sent prescription for senna as MiraLax was not working. Advised to stay well hydrated and increase fiber intake (2) Migraines: Code(s): G43.909 - Migraine, unspecified, not intractable, without status migrainosus Category: Medical Plan: Patient complaining of migraines states the magnesium daily helps and has been using Zofran as needed. Advised patient to follow up with eye doctor for new prescription. (3) Acne vulgaris: Code(s): L70.0 - Acne vulgaris Category: Medical Plan: Patient states the tretinoin cream was initially working but has built a tolerance to it. Referral placed to dermatology at this time. (4) Difficulty concentrating: Code(s): R41.840 - Attention and concentration deficit Category: Medical Plan: Patient complaining of difficulty concentrating states she has lost many different things over the last several months due to her inability to concentrate. States she has difficulty concentrating while in class. We will try Strattera at this time and follow up in 2 months via telehealth. Did advise if Strattera does not help we will refer to outpatient psychiatry. Patient is in agreement with the plan. Plan This note was constructed using voice recognition software. While every effort has been made to ensure accuracy and experimental outboard motors mechanic, still areas may have been included sometimes these areas may affect the content or meeting of the given symptoms. Total time spent caring for the patient today was 20 minutes. This includes time spent before the visit reviewing the chart, time spent during the visit, and time spent after the visit and documentation. Orders: Referrals Dermatology Referral L70.0 - Acne vulgaris Medications: New sennosides (senna) 8.6 mg PO BEDTIME 30 caps 1RF atomoxetine 40 mg PO DAILY 30 caps 1RF
== END 2024-09-03 09:32 | disposition home or self-care (01) ==
DX: K59.00 Constipation, unspecified (principal); G43.909 Migraine, unspecified, not intractable, without status migrainosus; L70.0 Acne vulgaris; R41.840 Attention and concentration deficit

== ENCOUNTER 2024-11-05 08:54 | Outpatient (AMB) | payer OTHER, SELFPAY ==
--- NOTE | 2024-11-05 08:54 | MHC.PC.OV ---
Intake Visit Reasons: f/u concentration telehealth [place] Blind Maker Required: No Jailer Chief: Not Required per policy Accompanied by: Self / Same As Patient Allergies No Known Allergies Allergy (Verified 11/05/24 08:57) Medication List - Last Reconciled 11/05/24 by Lynnette Meraz PA-C atomoxetine 40 mg PO DAILY cetirizine (Zyrtec) 10 mg PO DAILY PRN drospirenone (contraceptive) (Slynd) 1 tab PO DAILY fluticasone propionate 50 mcg/actuation (Flonase Allergy Relief) 1 spray intranasal DAILY 14 days magnesium 250 mg PO DAILY ondansetron 4 mg PO Q8H PRN polyethylene glycol 3350 (Miralax) 17 grams PO DAILY sennosides (senna) 8.6 mg PO BEDTIME tretinoin 0.025% 1 appl topical BEDTIME Tobacco use date assessed: 09/03/24 Dental Screening Dental Screen Date: 11/05/24 Did you have a dental visit in the last 12 months?: Yes Did you have a dental problem in the last 6 months where you did not have access to dental care?: No Was dental information given to patient?: Patient has dentist HPI f/u concentration telehealth HPI Details 19-year-old female with past medical history of migraines presenting via telehealth for follow up. Patient has not yet seen the eye doctor she had an appointment which was canceled by the practice and she is going to reschedule. She has not yet seen Dermatology has an appointment for the end of March. She is continues to use the magnesium for her migraines which has been helpful and we will occasionally have to use the Zofran when she forgets to take the magnesium. The Strattera has been helping with her concentration and overall mental clarity however she feels she could go up on the medication. [facility] Medical History No known problems Surgical History [place] teeth extracted No pertinent past surgical history Family History Mother No problems noted. Father No problems noted. Maternal Grandmother Breast cancer Other Substance use disorder Social History Housing: House Alcohol intake: current Alcohol intake frequency: a few times a week Patient Tobacco Use Status: Never used Tobacco e-Cigarette/Vaping Use: Never Used Second Hand Smoke Exposure: No service: No Current occupational status: employed Cognitive needs: No Hearing needs: No Vision needs: No Questionnaire PHQ-9 Over the last 2 weeks, how often have you been bothered by any of the following problems? 1. Little interest or pleasure in doing things: not at all 2. Feeling down, depressed, or hopeless: not at all 3. Trouble falling or staying asleep, or sleeping too much: not at all 4. Feeling tired or having little energy: not at all 5. Poor appetite or overeating: not at all 6. Feeling bad about yourself - or that you are a failure or have let yourself or your family down: not at all 7. Trouble concentrating on things, such as reading the newspaper or watching television: not at all 8. Moving or speaking so slowly that other people could have noticed. Or the opposite - being so fidgety or restless that you have been moving around a lot more than usual: not at all 9. Thoughts that you would be better off or of hurting yourself in some way: not at all Total score: 0 Depression Screening Interpretation: Negative Depression Screening Done: Yes Source: Developed by Drs. Sammy Nelson, Yael Abdul, Jeffrey Garcias and colleagues, with an educational naseem from [employer]. Thrive Questionnaire Date Thrive assessed: 11/05/24 I am a: Patient What is your living situation today?: I have a steady place to live Within the past 12 months, did the food you bought not last and you didn't have the money to get more?: Never true Within the past 12 months, did you worry whether your food would run out before you got money to buy more?: Never true Do you have trouble paying for medicines?: No Do you have trouble getting transportation to medical appointments?: No Do you have trouble paying your heating and electricity bill?: No Do you have trouble taking care of your child, family member or friend?: No Do you have trouble with day-to-day activities such as bathing, preparing meals, shopping, managing finances, etc.?: No Are you currently unemployed and looking for a job?: No Are you interested in more education?: No Please select the resources that you would like help with: None Currently or been in a relationship where the following occur: No concerns reported THRIVE Score: 0 AUDIT C Alcohol Use Questionnaire (AUDIT-C) 1. How often do you have a drink containing alcohol?: Never 3. How often do you have six or more drinks on one occasion?: Never Total Score: 0 DEYSI-7 AMB Questionnaire DEYSI-7 Date DEYSI - 7 assessed: 11/05/24 Feeling nervous, anxious, or on edge: 0 = Not at all Not being able to stop or control worryin = Not at all Worrying too much about different things: 0 = Not at all Trouble relaxin = Not at all Being so restless that it is hard to sit still: 0 = Not at all Becoming easily annoyed or irritable: 0 = Not at all Feeling afraid as if something awful might happen: 0 = Not at all Total DEYSI-7 score (0-4 normal; 5-9 mild; 10-14 moderate; 15-21 severe): 0 Source: Developed by Drs. Sammy Nelson, Yael Abdul, Jeffrey Garcias and colleagues, with an educational naseem from [employer]. Review of Systems Const Denies body aches, Denies chills, Denies fever(s), Reports headache(s) and Denies poor appetite Eyes Reports no additional complaints ENT Denies dizziness and Reports headache(s) Card Denies chest pain, Denies lightheadedness and Denies dyspnea Resp Denies cough and Denies dyspnea GI Denies abdominal pain, Denies constipation, Denies diarrhea, Reports nausea (With migraines) and Denies vomiting Reports no additional complaints Musc Reports no additional complaints and Denies abnormal gait Skin/Breast Reports system reviewed and no additional complaints, except as documented Neuro Denies abnormal gait, Denies dizziness and Reports headache(s) Psych Reports no additional complaints Physical exam (Primary Care) Vital Signs: Physical exam not performed due to nature of telehealth visit Tobacco/Smoking Status: Tobacco use Status Tobacco use date assessed 09/03/24 11/05/24 08:57 Patient Tobacco Use Status Never used Tobacco 11/05/24 08:57 e-Cigarette/Vaping Use Never Used 11/05/24 08:57 PHQ-9: PHQ-9 Score PHQ-9: Total score 0 11/05/24 08:57 Depression Screening Interpretation: Negative Thrive Assessment: Date of Thrive Assessment Date Thrive assessed 11/05/24 11/05/24 08:58 Currently or been in a relationship where the following occur: No concerns reported Telehealth Telehealth Telehealth Platform: Telephone Location of provider rendering services: practice address Location of patient: address on file Patient Identification confirmed using: Name, : Yes Telehealth method: voice only Patient verbally consented to treatment: Yes Patient verbally consented to billing insurance company: Yes Patient informed of any privacy concerns related to visit: Yes Coding Level of Care Code Est Pt Level 3 (20995) Diagnoses Migraines G43.909 Difficulty concentrating R41.840 Acne vulgaris L70.0 Assessment & Plan Assessment & Plan (1) Migraines: Code(s): G43.909 - Migraine, unspecified, not intractable, without status migrainosus Category: Medical Plan: Patient complaining of migraines states the magnesium daily helps and has been using Zofran as needed. Migraines have been well managed on the magnesium has had to use the Zofran 1-2 times typically when she forgets to take her magnesium. Has not yet seen the eye doctor but will reschedule this appointment (2) Difficulty concentrating: Code(s): R41.840 - Attention and concentration deficit Category: Medical Plan: Patient has noticed an improvement in her overall mental status and concentration on the Straterra 40 mg but feels she could go up on the medication. Plan to increase Strattera to 40 mg twice daily. Advised patient to follow up as needed for this concern. (3) Acne vulgaris: Code(s): L70.0 - Acne vulgaris Category: Medical Plan: Referral placed to dermatology at the last visit. Plan This note was constructed using voice recognition software. While every effort has been made to ensure accuracy and milk hauler, still areas may have been included sometimes these areas may affect the content or meeting of the given symptoms. Total time spent caring for the patient today was 20 minutes. This includes time spent before the visit reviewing the chart, time spent during the visit, and time spent after the visit and documentation. Medications: Changed From atomoxetine 40 mg PO DAILY 30 caps 1RF To atomoxetine 40 mg PO BID 60 caps 1RF
== END 2024-11-05 09:17 | disposition home or self-care (01) ==
LOC: HO.HMCH 08:54
DX: G43.909 Migraine, unspecified, not intractable, without status migrainosus (principal); R41.840 Attention and concentration deficit; L70.0 Acne vulgaris

== ENCOUNTER 2024-11-22 09:16 | Outpatient (AMB) | payer OTHER, SELFPAY ==
[2024-11-22 09:32] VITALS: BP 110/70; BMI 20.7
--- NOTE | 2024-11-22 09:32 | MHC.OFFVIS ---
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 Office Secretary Required: No Office Secretary Services: Office Secretary Present Information Interpreted: clinical only Zipper Ironer: Zipper Ironer Present Allergies No Known Allergies Allergy (Verified 11/22/24 09:34) Medication List - Last Reconciled 11/22/24 by Shonda Valle CNM atomoxetine 80 mg PO DAILY cetirizine (Zyrtec) 10 mg PO DAILY PRN drospirenone (contraceptive) (Slynd) 1 tab PO DAILY fluticasone propionate 50 mcg/actuation (Flonase Allergy Relief) 1 spray intranasal DAILY 14 days magnesium 250 mg PO DAILY ondansetron 4 mg PO Q8H PRN polyethylene glycol 3350 (Miralax) 17 grams PO DAILY sennosides (senna) 8.6 mg PO BEDTIME tretinoin 0.025% 1 appl topical BEDTIME Is last menstrual period known: No (BC) HPI HPI 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 She has been seen in the past by her pediatric care provider's and when she is which she has also had a adult primary health care provider. She did have a gap of time between provider's where she was without control and then [facility] because she was having migraine headaches, and also because she had had very severe heavy periods she was eventually put on particular control pill that has successfully last draws 24 tablets for placebo pills she does not take placebo pills but she is very about in the starting except for the time she was between provider's. She has finish the last active pills 2 days ago and if she were taking her placebo pills she would be taking day 3 of the placebo pills today. She would like to continue on the pills she is taking she also takes magnesium for her headaches. She is otherwise healthy. 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 She is sexually active in monogamous relationship and has no concerns about STIs but is open to testing with the exam today but declines blood work for HIV, hep B, hep C and syphilis [facility] Medical History No known problems Surgical History [place] teeth extracted No pertinent past surgical history Family History Mother No problems noted. Father No problems noted. Maternal Grandmother Breast cancer Other Substance use disorder Social History Housing: House Alcohol intake: current Alcohol intake frequency: a few times a week Patient Tobacco Use Status: Never used Tobacco e-Cigarette/Vaping Use: Never Used Second Hand Smoke Exposure: No service: No Current occupational status: employed Cognitive needs: No Hearing needs: No Vision needs: No Female Reproductive History Menstrual Age of Menarche: 9 Duration of menses: 3-5 days control method: pills Total pregnancies: 0 History of abnormal pap smear: No (no previous pap) Physical Exam Vital Signs: Last Vital Signs BP 110/70 11/22/24 09:32 BMI result Body Mass Index 20.7 Const General: healthy appearing, comfortable, no acute distress, well developed and alert Nutritional Appearance: average body habitus Orientation/consciousness: patient oriented x3 Limitations: no limitations HEENT Head: Yes normocephalic Neck Neck: Yes normal visual inspection Chest Chest palpation & inspection: normal inspection of the chest Breast/axilla inspection: normal inspection of the breasts and normal inspection of the axillae Breast/axilla palpation: normal palpation of the breasts and normal palpation of the axillae Resp Effort & Inspection: normal respiratory effort GI Inspection: Yes normal to inspection, No Abdominal wall edema and No distended Palpation (GI): Soft to palpation and nontender Other: Normal external exam vagina pink and moist cervix nulliparous smooth healthy appearing very healthy clear normal whitish discharge cervix long close thick mobile nontender uterus midposition mobile nontender adnexa nontender not enlarged and good tone with Kegel. General: Yes bladder normal to palpation External Female Exam: normal external appearance and normal appearance of the urethra Speculum Exam - Vagina: normal appearance of the vagina, normal palpation and normal vaginal discharge Speculum Exam - Cervix: normal appearance of the cervix, normal palpation and nontender Bimanual exam- vagina & uterus: normal bimanual exam, normal palpation, uterine size normal, bladder normal to palpation, consistency normal, normal palpation, uterine mobility normal, uterine shape normal, No Cervical tenderness present, non-tender and no cervical motion tenderness Bimanual Exam- Adnexa, other: normal adnexae, no masses, normal and No adnexal tenderness Neuro General: patient oriented x3 Assessment & Plan Assessment & Plan (1) control counseling: Code(s): Z30.09 - Encounter for other general counseling and advice on contraception Category: Medical (2) Cervical cancer screening: Code(s): Z12.4 - Encounter for screening for malignant neoplasm of cervix Category: Medical (3) Well woman exam with routine gynecological exam: Code(s): Z01.419 - Encounter for gynecological examination (general) (routine) without abnormal findings Category: Medical (4) Encounter for screening examination for sexually transmitted disease: Code(s): Z11.3 - Encounter for screening for infections with a predominantly sexual mode of transmission Category: Medical Plan -----Discussed in this visit the following: healthy balanced diet, regular and consistent exercise, getting recommended health screens, doing the best she can for her particular health concerns, kegel exercises, pap smear screening and followup recommendations, mammography screening and SBE, normal changes in cycles in her life stage--- . 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 She had very painful periods before she started on pills she had also has a history of migraines so she was prescribed these pills hoping they would be helpful with her migraines and they very helpful and is well she does not get any periods at all she is happy on these pills and wants to stay on them. She knows that they areby brand name only and not available as generic She will check to see whether not she got the Gardasil vaccine she was going to [facility] so she most likely was offered it. Medications: New drospirenone (contraceptive) Please dispense 3 at 1 time. 4 mg PO DAILY 24 days 28 tabs 12RF drospirenone (contraceptive) Please dispense 3 at 1 time. 4 mg PO DAILY 24 days 28 tabs 12RF Discontinued atomoxetine Discontinued Reason: Insurance Denied 40 mg PO BID 60 caps 1RF Coding Level of Care Code New Pt Prev Care 18-39yr([id number] Diagnoses control counseling Z30.09 Cervical cancer screening Z12.4 Well woman exam with routine gynecological exam Z01.419 Encounter for screening examination for sexually transmitted disease Z11.3
== END 2024-11-22 10:36 | disposition home or self-care (01) ==
LOC: HO.HWSM 09:16
PROVIDERS: Visit Provider Advanced Practice Midwife
DX: Z01.419 Encounter for gynecological examination (general) (routine) without abnormal findings (principal); Z30.09 Encounter for other general counseling and advice on contraception
CPT/HCPCS: 99385; 99459

== ENCOUNTER 2024-11-22 09:16 | Outpatient (REF) | payer OTHER, SELFPAY | END 2024-11-22 09:17 | disposition home or self-care (01) | LOC: HO.LAB 09:16 | PROVIDERS: Visit Provider Advanced Practice Midwife | DX: Z13.89 Encounter for screening for other disorder (principal) ==

== ENCOUNTER 2024-11-22 11:43 | Outpatient (REF) | payer OTHER, SELFPAY ==
[2024-11-23 11:40] LABS: CT PCR NOT DETECTED (Not Detect.); NG PCR NOT DETECTED (Not Detect.)
[2024-11-23 11:44] LABS: Bacterial Vaginosis PCR NEGATIVE (Negative); Candida Group PCR NOT DETECTED (Not Detect); Candida glab krusei PCR NOT DETECTED (Not Detect); Trichomonas vaginalis PCR NOT DETECTED (Not Detect)
[2024-11-30 09:15] LABS: HPV Genotype 16 Negative (Negative); HPV Genotype 18 Negative (Negative); HPV High Risk Negative (Negative)
== END 2024-11-22 11:44 | disposition home or self-care (01) ==
LOC: HO.LNP 11:43
PROVIDERS: Visit Provider Advanced Practice Midwife
DX: Z00.00 Encounter for general adult medical examination without abnormal findings (principal); N89.8 Other specified noninflammatory disorders of vagina; Z20.2 Contact with and (suspected) exposure to infections with a predominantly sexual mode of transmission
CPT/HCPCS: 81515; 87491; 87591; 87626; 88175

== ENCOUNTER 2025-02-07 11:15 | Emergency (ER) | payer OTHER, SELFPAY ==
--- NOTE | ~2025-02-07 | XR_ITS ---
EXAMINATION: XR CHEST CLINICAL INFORMATION: chest tightness COMPARISON: None available. TECHNIQUE: 2 views of the chest were obtained. FINDINGS: The cardiac, hilar, and mediastinal contours are normal. The lungs are clear bilaterally. There is no pneumothorax or pleural effusion. There is no focal osseous or soft tissue abnormality. XR/XR chest 2V IMPRESSION: Normal chest. Electronically signed by: Steve Antonio MD 02/07/2025 12:53 PM EDT
--- NOTE | 2025-02-07 11:16 | ECG_ITS ---
Test Reason : chest pain Blood Pressure : */* mmHG Vent. Rate : 118 BPM Atrial Rate : 118 BPM P-R Int : 136 ms QRS Dur : 94 ms QT Int : 316 ms P-R-T Axes : 67 121 47 degrees QTcB Int : 442 ms Sinus tachycardia Possible Left atrial enlargement Right axis deviation Incomplete right bundle branch block Possible Right ventricular hypertrophy Abnormal ECG No previous ECGs available Referred By: Generic ED Physician Electronically Signed By: XAVIER VIGIL MD
[2025-02-07 11:21] VITALS: BP 131/82; PULSE 108; RESP 18; TEMP 36.6; O2SAT 100; BMI 21.7
--- NOTE | 2025-02-07 11:22 | ED_ITS ---
HPI - Chest Pain General Chief Complaint: Chest Pain Stated Complaint: chest pain Time Seen by Provider: 02/07/25 12:00 Source: patient and family (mom and dad) Mode of arrival: ambulatory Limitations: no limitations History of Present Illness ED Provider: CATRACHO HANCOCK PA-C HPI narrative: 19 year old female with a pmhx significant for seasonal allergies and ADHD who presents for chest and throat discomfort that woke her up from her sleep around 0400 this morning. She was able to go back to sleep after around an hour. Discomfort was still present when she woke up around 1000. She describes it as feeling of discomfort and a like she of needs to cough something up. She reports her symptoms are worse when taking a deep breath in or eating food. She is still able to swallow without issue. No decrease in PO intake. Denies sore throat, cough, or nasal congestion. She reports taking Strattera last night before she went to bed and wonders if this could have caused her symptoms. She typically takes this at night, right before going to bed, as it makes her nauseous throughout the day. No history of similar. Denies chest pain, SOB, or palpitations. Admits to OCP use. Denies recent travel/ long car rides. Denies calf pain. Related Data Home Medications ?Medication ?Instructions ?Recorded ?Confirmed cetirizine 10 mg tablet (Zyrtec) 10 mg PO DAILY PRN 04/13/23 11/22/24 drospirenone (contraceptive) 4 mg 1 tab PO DAILY 04/19/24 11/22/24 (28) tablet (Slynd) magnesium 250 mg tablet 250 mg PO DAILY 04/19/24 11/22/24 Previous Rx's ?Medication ?Instructions ?Recorded ondansetron 4 mg disintegrating 4 mg PO Q8H PRN nausea and 04/19/24 tablet vomiting #14 tabs polyethylene glycol 3350 17 17 g PO DAILY #119 grams 04/19/24 gram/dose oral powder (Miralax) fluticasone propionate 50 1 spray intranasal DAILY 14 days 04/20/24 mcg/actuation nasal #100 mL spray,suspension (Flonase Allergy Relief) sennosides 8.6 mg capsule (senna) 8.6 mg PO BEDTIME #30 caps 09/03/24 drospirenone (contraceptive) 4 mg 4 mg PO DAILY 24 days #28 tabs 11/22/24 (28) tablet atomoxetine 80 mg capsule 80 mg PO DAILY #30 caps 12/24/24 tretinoin 0.025 % topical cream 1 appl topical BEDTIME #20 grams 01/27/25 omeprazole 20 mg capsule,delayed 20 mg PO DAILY 14 days #14 caps 02/07/25 release Allergies Allergy/AdvReac Type Severity Reaction Status Date / Time No Known Allergies Allergy Verified 02/07/25 11:24 Review of Systems 2 Review of Systems: Yes all other systems are reviewed and are negative FORMERLY [facility] Past Medical History Attestation statement: The following information was validated with the patient. Source: old records reviewed and nursing notes reviewed Medical History No known problems Surgical History [place] teeth extracted No pertinent past surgical history Family History Family History Mother No problems noted. Father No problems noted. Maternal Grandmother Breast cancer Other Substance use disorder Social History Social History Housing: House Alcohol intake: current Alcohol intake frequency: a few times a week Patient Tobacco Use Status: Never used Tobacco e-Cigarette/Vaping Use: Never Used Second Hand Smoke Exposure: No Advance Directives: No Advance Directives Information Provided: Yes Patient : No service: No Current occupational status: employed Cognitive needs: No Hearing needs: No Vision needs: No Physical Exam 2 Vital Signs: Vital Signs: Last Vital Signs Temp 98.3 F 02/07/25 16:32 Pulse 98 02/07/25 16:32 Resp 14 02/07/25 16:32 BP 115/79 02/07/25 16:32 Pulse Ox 100 02/07/25 16:32 O2 Del Method Room Air 02/07/25 16:32 BMI result Body Mass Index 21.7 Tachycardic, vitals otherwise WNL. Not hypoxic. General: Well appearing, in no acute distress. Skin: Warm, dry, intact. No rashes or lesions. Head: Normocephalic, atraumatic. EENT: Hearing is intact b/l. Conjunctiva clear. Sclera is anicteric. PERRLA. EOM intact. Moist mucous membranes. Posterior oropharynx without erythema or edema, no tonsillar exudates or peritonsillar masses, uvula midline, controlling secretions and speaking complete sentences. Neck: Supple without LAD Cardiac: Chest wall symmetric. RRR. no reproducible chest wall tenderness to palpation. Lungs: Normal respiratory effort without accessory muscle use. CTA bilaterally. No rales, rhonchi, or wheezes.? Abdomen: Soft, non-tender, non-distended. No rebound tenderness or guarding. Positive BS x4. Back: No midline spinous or paraspinal tenderness. No step off deformity. Ext: no peripheral edema, no calf tenderness b/l Neuro: AOx3. Normal speech. Ambulating with steady gait. Psych: Appropriate mood and affect. Responds appropriately to questions. Course Course Course Narrative: This is an RME done by Mj Pedro PA-C 19 yo female with PMHx of migraines presents to the ED due to chest/throat tightness that began around 4am this morning awoke her from sleep. She states she has a sensation that she swallowed a pill and it got stuck . States it does not hurt but feels uncomfortable. Pain is radiating to upper back and is constant. Has never had an episode like this before. States she went for a run yesterday morning but felt normal yesterday. Reports she is on progesterone oral BC Denies recent sick contacts, travel. PE: Tachycardic rate, normal rhythm. Lungs CTA Plan: Labs, viral swabs, strep swab, UA Reevaluation(s) Reevaluation #1: 1631 -- CBC without leukocytosis or left shift. No anemia. H&H stable. Chemistry without acute electrolyte abnormality requiring intervention. No CLOTILDE. Liver function normal. Troponin undetectable x2. TSH WNL. Beta quant undetectable, not . Urine showing leukocyte esterase, WBCs, urine bacteria, 3-5 squamous epithelial cells. She does not have any urinary symptoms, ?contamination. Will await urine culture for treatment. negative COVID, flu, RSV, strep throat. Chest x-ray does not demonstrate pneumothorax or pneumonia. D-dimer undetectable. PE unlikely. CT angiogram chest not warranted at this time. > EKG shows sinus tachycardia at a rate of 118 beats per minute, there is a incomplete right bundle-branch block. I do not have any prior EKGs to compare to. I did discuss this with patient and her parents, no knowledge of prior right bundle-branch blocks or arrhythmias. > I reached out to burr filer, Dr. Oneill. After reviewing EKG and patient's case, he has extremely low suspicion for cardiac etiology. he is not recommending admission. We were able to obtain a transthoracic cardiac echo while in ED which was read as normal by Dr. Oneill. no abnormalities. > Given patient takes her Strattera at night just before going to bed, I have suspicion for possible esophagitis. Continuing to deny any pain at present, more of a discomfort. She is well-appearing. She is no longer tachycardic. Vitals are otherwise WNL. She states that she was prescribed an antinausea medication by her provider however never trialed this. I advised her to take her Strattera in the morning in conjunction with the antinausea medication. Educated her on esophagitis. Will trial 2 weeks of omeprazole as well. > I have discussed case with my attending dr. miller who feels discharge home at this time is reasonable. > Encouraged outpatient follow-up. Patient has remained stable throughout ED visit today. Discussed worrisome signs and symptoms and when to return to the ED. All questions answered at this time. Patient is agreeable with disposition and stable for discharge. Medications Administered Discontinued Medications Generic Name Dose Route Start Last Admin Trade Name Freq PRN Reason Stop Dose Admin Aspirin 324 mg 02/07/25 13:35 02/07/25 15:12 Aspirin 81 Mg Tab.Chew PO 02/07/25 13:36 324 mg ONCE ONE Administration Ketorolac Tromethamine 30 mg 02/07/25 14:14 02/07/25 15:12 Ketorolac Tromethamine 30 Mg/Ml Vial IM 02/07/25 14:15 30 mg ONCE ONE Administration Medical Decision Making Medical Decision Making MDM Narrative: 19 year old female with a pmhx significant for seasonal allergies and ADHD who presents for chest and throat discomfort that woke her up from her sleep around 0400 this morning. Tachycardic, vitals otherwise WNL. she is well appearing and in NAD. History without high risk features (not substernal, no exertional component, not relieved with rest).? Minimal CAD risk factors (including age), recent negative stress test (<2 years).? Exam without evidence of volume overload. EKG without signs of active ischemia. HEART score: 0. Given the timing of pain to ED presentation, plan to send delta troponin to evaluate for NSTEMI. Differential diagnosis also includes anemia, electrolyte abnormality, costochondritis, msk pain, pneumonia, pleurisy, PE (PERC 2) Presentation not consistent with pneumothorax, thoracic aortic dissection, cardiac effusion or tamponade, myocarditis, pericarditis Labs, EKG, chest x-ray, viral / strep swabs ordered from triage. Will add on D- dimer. Differential Diagnosis Differential Diagnoses: The differential diagnosis associated with the presentation includes as above. Admission/Observation not indicated Consult Healthcare Provider Management of the patient was discussed with: Engineering Group Leader (cardiology - dr. oneill) Lab Data MDM Lab Attestation statement: I reviewed the patient's lab results. as above. 02/07/25 11:36 02/07/25 11:36 Labs: Lab Results 02/07/25 02/07/25 02/07/25 Range/Units 11:36 11:53 12:33 WBC 7.9 (4.8-10.8) X10*3/uL RBC 4.14 L (4.20-5.50) X10*6/uL Hgb 13.2 (12.0-16.0) g/dl Hct 37.8 (37.0-47.0) % MCV 91.3 (80.0-98.0) fL MCH 31.9 (27.0-33.0) pg MCHC 34.9 (31.0-35.0) g/dl RDW 11.6 (11.0-16.0) % Plt Count 291 (160-400) X10*3/uL MPV 9.7 (9.4-12.3) fL Immature Gran % (Auto) 0.3 (0.0-0.4) % Neut % (Auto) 61.5 (45-73) % Lymph % (Auto) 29.2 (20-40) % [place] % (Auto) 7.6 (2-11) % Eos % (Auto) 0.8 (0-4) % Baso % (Auto) 0.6 (0-2) % Lymph # (Auto) 2.3 (1.2-4.9) X10*3/uL [place] # (Auto) 0.6 (0.1-1.2) X10*3/uL Eos # (Auto) 0.1 (0.0-0.4) X10*3/uL Baso # (Auto) 0.1 (0.0-0.2) X10*3/uL Abs Immat Gran (auto) 0.02 (0.00-0.03) X10*3/uL Absolute Neuts (auto) 4.9 (2.0-8.3) x10*3/uL Absolute Nucleated RBC 0.000 (0.0-0.012) X10*3/uL Nucleated RBC % (auto) 0.0 (0.0-0.2) /100WBC D-Dimer High Sensitivty < 150 NG/ML Sodium 141 (135-145) mmol/L Potassium 3.8 (3.3-5.1) mmol/L Chloride 110 H (96-108) mmol/L Carbon Dioxide 24 (22-29) mmol/L Anion Gap 11 L (12-20) BUN 9 (9-16) mg/dL Creatinine 0.73 (0.5-1.4) mg/dL Estim Creat Clear Calc 118.5 Estimated GFR > 60 Random Glucose 98 (60-115) mg/dL Calcium 9.7 (8.4-10.2) mg/dL Magnesium 1.9 (1.6-2.6) mg/dL Total Bilirubin 0.5 (0.0-1.0) mg/dL AST 23 (5-31) U/L ALT 17 (0-31) U/L Alkaline Phosphatase 54 (39-117) U/L Troponin I High Sens < 2.7 (<3.5-17.0) ng/L Total Protein 6.9 (6.5-8.0) g/dL Albumin 4.6 (3.5-5.0) g/dL TSH 1.31 (0.32-4.0) uIU/mL Beta HCG, Quant < 2 mIU/mL Urine Color Urine Appearance Urine pH (5.0-9.0) Ur Specific [place] (1.005-1.025) Urine Protein (Neg-Trace) mg/dL Urine Glucose (UA) (Negative) mg/dL Urine Ketones (Negative) mg/dL Urine Blood (Negative) Urine Nitrite (Negative) Ur Leukocyte Esterase (Negative) Urine RBC (0-2) /HPF Urine WBC (0-5) /HPF Ur Squamous Epith Cells (0-2) /HPF Urine Bacteria (None Seen) Hyaline Casts (0-2) /LPF Influenza Type A (PCR) NEGATIVE (Negative) Influenza Type B (PCR) NEGATIVE (Negative) RSV RNA Qual (PCR) NEGATIVE (Negative) SARS-CoV-2 RNA (RT-PCR) NEGATIVE (Negative) S. pyogenes GrpA OLGA Negative (Negative) 02/07/25 02/07/25 Range/Units 15:33 15:42 WBC (4.8-10.8) X10*3/uL RBC (4.20-5.50) X10*6/uL Hgb (12.0-16.0) g/dl Hct (37.0-47.0) % MCV (80.0-98.0) fL MCH (27.0-33.0) pg MCHC (31.0-35.0) g/dl RDW (11.0-16.0) % Plt Count (160-400) X10*3/uL MPV (9.4-12.3) fL Immature Gran % (Auto) (0.0-0.4) % Neut % (Auto) (45-73) % Lymph % (Auto) (20-40) % [place] % (Auto) (2-11) % Eos % (Auto) (0-4) % Baso % (Auto) (0-2) % Lymph # (Auto) (1.2-4.9) X10*3/uL [place] # (Auto) (0.1-1.2) X10*3/uL Eos # (Auto) (0.0-0.4) X10*3/uL Baso # (Auto) (0.0-0.2) X10*3/uL Abs Immat Gran (auto) (0.00-0.03) X10*3/uL Absolute Neuts (auto) (2.0-8.3) x10*3/uL Absolute Nucleated RBC (0.0-0.012) X10*3/uL Nucleated RBC % (auto) (0.0-0.2) /100WBC D-Dimer High Sensitivty NG/ML Sodium (135-145) mmol/L Potassium (3.3-5.1) mmol/L Chloride (96-108) mmol/L Carbon Dioxide (22-29) mmol/L Anion Gap (12-20) BUN (9-16) mg/dL Creatinine (0.5-1.4) mg/dL Estim Creat Clear Calc Estimated GFR Random Glucose (60-115) mg/dL Calcium (8.4-10.2) mg/dL Magnesium (1.6-2.6) mg/dL Total Bilirubin (0.0-1.0) mg/dL AST (5-31) U/L ALT (0-31) U/L Alkaline Phosphatase (39-117) U/L Troponin I High Sens < 2.7 (<3.5-17.0) ng/L Total Protein (6.5-8.0) g/dL Albumin (3.5-5.0) g/dL TSH (0.32-4.0) uIU/mL Beta HCG, Quant mIU/mL Urine Color Yellow Urine Appearance Clear Urine pH 7.5 (5.0-9.0) Ur Specific [place] 1.010 (1.005-1.025) Urine Protein Negative (Neg-Trace) mg/dL Urine Glucose (UA) Negative (Negative) mg/dL Urine Ketones Negative (Negative) mg/dL Urine Blood Negative (Negative) Urine Nitrite Negative (Negative) Ur Leukocyte Esterase Large (3+) H (Negative) Urine RBC 0-2 (0-2) /HPF Urine WBC 21-50 H (0-5) /HPF Ur Squamous Epith Cells 3-5 (0-2) /HPF Urine Bacteria 1+ (None Seen) Hyaline Casts 0-2 (0-2) /LPF Influenza Type A (PCR) (Negative) Influenza Type B (PCR) (Negative) RSV RNA Qual (PCR) (Negative) SARS-CoV-2 RNA (RT-PCR) (Negative) S. pyogenes GrpA OLGA (Negative) Independent Interpretation I performed an independent interpretation of an: EKG, Plain X-Ray and Ultrasound (cardiac echo) Interpretation: Chest x-ray without infiltrate or consolidation to suggest pneumonia EKG showing sinus tachycardia no acute ischemic changes or ST elevations Radiology Impression Discussion of test interpretation with radiology: I have reviewed the radiologist's reading. Radiologist Impression: Date of Service: 02/07/25 Procedure(s): XR chest 2V Accession Number(s): [id number] cc: Mj Pedro PA-C; Lynnette Meraz PA-C~ EXAMINATION: XR CHEST CLINICAL INFORMATION: chest tightness COMPARISON: None available. TECHNIQUE: 2 views of the chest were obtained. FINDINGS: The cardiac, hilar, and mediastinal contours are normal. The lungs are clear bilaterally. There is no pneumothorax or pleural effusion. There is no focal osseous or soft tissue abnormality. XR/XR chest 2V IMPRESSION: Normal chest. Electronically signed by: Steve Antonio MD 02/07/2025 12:53 PM EDT RP Independent Historian Clinical information obtained from an independent historian. History obtained from or confirmed by: Parent (mom and dad) Prescription Management I considered prescription management with: Other (omeprazole) Social Determinants Patient?s care significantly limited by Social Determinants of Health including: Other Social Determinant of Health Critical Care Time Critical Care Time Critical Care Time: Yes Total Critical Care Time: 35 Attestation: Critical care time in the amount of 35 minutes has been provided to the patient in terms of direct patient care, frequent reevaluation, consultation with cardiology, review and interpretation of medical data and results, and management of potentially life-threatening conditions. This is all outside of any medical procedures. Discharge Plan Discharge Clinical Impression: Atypical chest pain, Right bundle branch block (RBBB) Patient Disposition: Home, Self-Care Instructions: Omeprazole (By mouth), Noncardiac Chest Pain (ED), Esophagitis (ED) Additional Instructions: You were evaluated in the ED today for chest /throat discomfort. Your blood work is reassuring. You tested negative for covid, flu, rsv. Your cardiac enzyme is normal x2. Your d-dimer is undetectable, making clots within your lungs (pulmonary emboli) unlikely. Your EKG shows evidence of a right bundle branch block. We do not have prior EKGs to compare to. It is unclear how long you have had this. A cardiac echo (ultrasound of your heart) was performed today which returned normal. I have suspicion that you may have pill esophagitis. see home care instructions. I recommend taking your straterra in the morning with your home anti-nausea medication. Take this with 8 oz of water. Do not lie down for at least an hour after taking this. I am also starting you on a short course of omeprazole (PPI). Take this daily for 2 weeks. Follow up with your outpatient providers. Return with any new or worsening symptoms. In the case of an emergency call 911. Prescriptions: New omeprazole 20 mg capsule,delayed release(DR/EC) 20 mg PO DAILY 14 Days Qty: 14 0RF No Action fluticasone propionate [Flonase Allergy Relief] 50 mcg/actuation spray,suspension 1 spray intranasal DAILY 14 Days Qty: 100 0RF Rx Instructions: administer into each nostril atomoxetine 80 mg capsule 80 mg PO DAILY Qty: 30 1RF tretinoin 0.025 % cream 1 appl topical BEDTIME Qty: 20 0RF cetirizine [Zyrtec] 10 mg tablet 10 mg PO DAILY PRN Slynd 4 mg (28) tablet 1 tab PO DAILY polyethylene glycol 3350 [Miralax] 17 gram/dose powder 17 g PO DAILY Qty: 119 1RF magnesium 250 mg tablet 250 mg PO DAILY ondansetron 4 mg tablet,disintegrating 4 mg PO Q8H PRN (Reason: nausea and vomiting) Qty: 14 0RF senna 8.6 mg capsule 8.6 mg PO BEDTIME Qty: 30 1RF drospirenone (contraceptive) 4 mg (28) tablet 4 mg PO DAILY 24 Days Qty: 28 12RF Rx Instructions: Please dispense 3 at 1 time. Referrals: [facility] [Provider Group] Lynnette Meraz PA-C [Primary Care Provider] - Interventions: ED Discharge Assessment Last Done: 02/07/25 16:32 Discharge Date/Time: 02/07/25 16:48 Print Language: Polish
[2025-02-07 11:41] LABS: MANUAL DIFF FLAG NO
[2025-02-07 11:42] VITALS: BP 137/83; PULSE 113; RESP 16; TEMP 36.8; O2SAT 100
[2025-02-07 11:44] LABS: Basophils Absolute Auto 0.1 X10*3/uL (0.0-0.2); Basophils Percent Auto 0.6 % (0-2); Eosinophils Absolute Auto 0.1 X10*3/uL (0.0-0.4); Eosinophils Percent Auto 0.8 % (0-4); Hematocrit 37.8 % (37.0-47.0); Hemoglobin 13.2 g/dl (12.0-16.0); Imm Gran Abs Auto 0.02 X10*3/uL (0.00-0.03); Imm Gran Pct Auto 0.3 % (0.0-0.4); Lymphocytes Absolute Auto 2.3 X10*3/uL (1.2-4.9); Lymphocytes Percent Auto 29.2 % (20-40); Mean Corpuscular HGB Conc 34.9 g/dl (31.0-35.0); Mean Corpuscular Hemoglobin 31.9 pg (27.0-33.0); Mean Corpuscular Volume 91.3 fL (80.0-98.0); Mean Platelet Volume 9.7 fL (9.4-12.3); Monocytes Absolute Auto 0.6 X10*3/uL (0.1-1.2); Monocytes Percent Auto 7.6 % (2-11); Neutrophils Absolute Auto 4.9 x10*3/uL (2.0-8.3); Neutrophils Percent Auto 61.5 % (45-73); Platelet Count 291 X10*3/uL (160-400); Red Blood Count 4.14 X10*6/uL (4.20-5.50); Red Cell Distribution Width 11.6 % (11.0-16.0); White Blood Count 7.9 X10*3/uL (4.8-10.8)
[2025-02-07 12:00] VITALS: PULSE 64
[2025-02-07 12:07] LABS: Alanine Aminotransferase 17 U/L (0-31); Albumin Level 4.6 g/dL (3.5-5.0); Alkaline Phosphatase 54 U/L (39-117); Anion Gap 11 (12-20); Aspartate Amino Transferase 23 U/L (5-31); Bilirubin Total 0.5 mg/dL (0.0-1.0); Blood Urea Nitrogen 9 mg/dL (9-16); Calcium 9.7 mg/dL (8.4-10.2); Carbon Dioxide 24 mmol/L (22-29); Chloride 110 mmol/L (96-108); Creatinine Clr Calc Pharmacy 118.5; Estimated Glomerular Filt Rate > 60; Glucose Random 98 mg/dL (60-115); Magnesium 1.9 mg/dL (1.6-2.6); Potassium 3.8 mmol/L (3.3-5.1); Sodium 141 mmol/L (135-145); Total Protein 6.9 g/dL (6.5-8.0)
[2025-02-07 12:10] LABS: HCG Quantitative < 2 mIU/mL; Troponin-I High Sensitivity < 2.7 ng/L (<3.5-17.0)
[2025-02-07 12:21] LABS: TSH reflex Free T4 1.31 uIU/mL (0.32-4.0)
[2025-02-07 12:36] LABS: Influenza A PCR NEGATIVE (Negative); Influenza B PCR NEGATIVE (Negative); Resp Syncy Virus RNA Qual PCR NEGATIVE (Negative); SARS COV2 PCR INHOUSE NEGATIVE (Negative)
[2025-02-07 12:45] LABS: IDNOW Serial# 58CA691E; Strep A Nucleic Acid Negative (Negative)
[2025-02-07 13:00] LABS: D Dimer High Sensitivity < 150 NG/ML
--- NOTE | 2025-02-07 14:18 | CA_ITS ---
Transthoracic Echocardiogram Patient (Last, First, Middle): Sherri Odom M Gender: Female Date of : 2005 Age: 19 Procedure Date: 02/07/2025 Procedure Type: Transthoracic Echocardiogram Location: ER Height: 170.18 cm Weight: 62.6 kg BSA: 1.73 m2 Heart Rate: 100 bpm BP: 118 / 76 mmHg Green Chain Off Bearer: MEERA Referring MD: HORTENCIA ROSAS MD Valve Repairer Reclamation: Delbert Oneill MD Symptoms: CHF Study Quality: Adequate ECG Rhythm: Tachycardia Conclusions: - Normal study Findings Left Ventricle Normal left ventricular size, thickness, and systolic function. The visually estimated ejection fraction is between 60-65%. Spectral Doppler is indicative of a normal filling pattern. Right Ventricle Normal right ventricular cavity size and systolic function. Atria Both atria are normal in size. There is no evidence of interatrial shunt. Aortic Valve Normal aortic valve structure and function. There is no aortic valve stenosis. There is no aortic valve regurgitation. Mitral Valve Normal mitral valve structure and function. There is trace mitral valve regurgitation. There is no mitral valve stenosis. Pulmonic Valve The pulmonic valve is likely normal. Tricuspid Valve Normal tricuspid valve structure. Tricuspid regurgitation envelope is inadequate for calculation of right ventricular systolic pressure. Normal right atrial pressure. Great Vessels All visible segments of the aorta are normal in size. The visualized portions of the pulmonary artery and branches are normal. Venous The inferior vena cava is normal in size and collapses greater than 50% with inspiration. Pericardium/Pleural There is no evidence of pericardial effusion. Prior Study Comparison No prior study available for comparison. Measurements 2D Linear Measurements IVSd: 0.54 0.6-0.9/0.6-1.0 cm LVIDd: 4.52 3.9-5.3/4.2-5.9 cm LVIDd Index: 2.61 2.4-3.2/2.2-3.1 cm/m2 LVIDs: 2.78 2.0-3.6 cm LVPWd: 0.71 0.7-1.1 cm LA Diam: 2.80 2.7-3.8/3.0-4.0 cm LAIDs Index: 1.62 1.5-2.3 cm/m2 LV Mass: 104.26 67-162/88-224 g LV Mass Index: 60.27 43-95/49-115 g/m2 LVOT Diam: 1.80 3.0+(-)1.3 cm 2D Systolic Function EF 4C: 67.00 >55% EF 2C: 58.80 >55% EF BiP: 62.10 >55% Mitral Valve MV Pk E: 0.79 MV PK A: 0.54 MV Decel Time: 210.00 E/A: 1.50 E'Lateral: 17.10 E'Medial: 14.30 E/E' Med: 5.50 E/E' Lat: 4.60 PHT: 61.00 MVA PHT: 3.61 Decel [place]: 3.78 Aortic Valve AoV Pk Venkat: 1.19 AoV Mn Venkat: 0.90 AoV VTI: 0.22 AoV Pk Grad: 6.00 Aov Mn Grad: 4.00 NOAH Cont.VTI: 2.28 LVOT LVOT Pk Venkat: 1.15 LVOT Mn Venkat: 0.79 LVOT VTI: 0.20 LVOT Pk Grad: 5.00 LVOT Mn Grad: 3.00 LVOT Diam: 1.80 LVOT Area: 2.54 Diastolic Function MV Pk E: 0.79 MV Pk A: 0.54 E/A: 1.50 E'Medial: 14.30 E/E' Med: 5.50 E' Laterial: 17.10 E/E' Lat: 4.60 Right Ventricle TAPSE (mm): 18.30 TVS' Venkat: 14.80 Tricuspid Valve RA Press: 3.00 Great Vessels Aorta Sinus of Valsalva: 3.30 2.0-3.5 cm Ao Asc: 2.90 2.1-3.4 cm Ao Arch: 2.50 Pulmonary Valve PV Pk Venkat: 0.95 Peak PV Grad: 4.00 Updated in Other Vendor System with Status of Final Delbert Oneill MD electronically signed on 02/11/2025 8:55:26 AM with status of Final
[2025-02-07] MEDS: Aspirin 81 MG TAB.CHEW 324 MG PO (15:12)
[2025-02-07] MEDS: Ketorolac Tromethamine 30 MG/ML VIAL IM (15:12)
[2025-02-07 15:34] VITALS: BP 115/79; PULSE 105; RESP 14; TEMP 36.8; O2SAT 100
[2025-02-07 15:48] LABS: Appearance Urine Clear; Color Urine Yellow; Glucose Urine UA Negative (Negative); Leukocyte Esterase Urine Large (3+) (Negative); Nitrite Urine Negative (Negative); PH 7.5 (5.0-9.0); UMIC TRIGGER UACC YES; Urine Blood Negative (Negative); Urine Ketones Negative (Negative); Urine Protein Negative (Neg-Trace)
[2025-02-07 15:50] LABS: Bacteria Urine 1+ (None Seen); Hyaline Casts Urine 0-2 /LPF (0-2); RBC Urine 0-2 /HPF (0-2); UACC Culture Trigger YES; WBC Urine 21-50 /HPF (0-5)
[2025-02-07 16:01] LABS: Troponin-I High Sensitivity < 2.7 ng/L (<3.5-17.0)
[2025-02-07 16:32] VITALS: BP 115/79; PULSE 98; RESP 14; TEMP 36.8; O2SAT 100
== END 2025-02-07 16:48 | disposition home or self-care (01) ==
PROVIDERS: Physician Assistant Medical; Emergency Provider Emergency Medicine Emergency Medical Services
DX: R07.89 Other chest pain (principal); R00.0 Tachycardia, unspecified; R07.0 Pain in throat; I45.10 Unspecified right bundle-branch block; Z79.899 Other long term (current) drug therapy; R10.2 Pelvic and perineal pain; Z03.818 Encounter for observation for suspected exposure to other biological agents ruled out
CPT/HCPCS: 0241U; 36415; 71046; 80053; 81001; 83735; 84443; 84484; 84702; 85025; 85379; 87086; 87651; 93005; 93306; 96372; 99284; 99285; J1885; Q9957

== ENCOUNTER → 2025-02-07 11:16 | Outpatient (BNV) | payer OTHER, SELFPAY | PROVIDERS: Emergency Provider Emergency Medicine Emergency Medical Services; Visit Provider Internal Medicine Cardiovascular Disease | DX: I50.9 Heart failure, unspecified (principal) | CPT/HCPCS: 93306 ==

== ENCOUNTER → 2025-02-07 11:28 | Outpatient (BNV) | payer OTHER, SELFPAY | PROVIDERS: Emergency Provider Emergency Medicine Emergency Medical Services; Visit Provider Radiology Diagnostic Radiology | DX: R07.9 Chest pain, unspecified (principal) | CPT/HCPCS: 71046 ==

== ENCOUNTER 2025-04-22 09:22 | Outpatient (AMB) | payer OTHER, SELFPAY ==
--- NOTE | 2025-04-22 09:24 | MHC.PC.OV ---
Vital Signs 04/22/25 09:26 Height 5 ft 7 in Weight 134 lb 2 oz BMI 21.0 BP 118/70 Blood Pressure Location Lt brachial Position Sitting Pulse 116 H Pulse Source Pulse Oximeter Pulse Oximetry (%) 99 Oxygen Delivery Method Room Air Intake Visit Reasons: PE Sample Color Maker Required: No Accompanied by: Self / Same As Patient Allergies No Known Allergies Allergy (Verified 04/22/25 09:32) Medication List - Last Reconciled 04/22/25 by Lynnette Meraz PA-C atomoxetine 80 mg PO DAILY cetirizine (Zyrtec) 10 mg PO DAILY PRN drospirenone (contraceptive) 4 mg PO DAILY 24 days fluticasone propionate 50 mcg/actuation (Flonase Allergy Relief) 1 spray intranasal DAILY 14 days magnesium 250 mg PO DAILY ondansetron 4 mg PO Q8H PRN spironolactone 25 mg PO DAILY tretinoin 0.05% 1 appl topical BEDTIME Tobacco use date assessed: 04/22/25 Dental Screening Dental Screen Date: 04/22/25 Did you have a dental visit in the last 12 months?: No Did you have a dental problem in the last 6 months where you did not have access to dental care?: No Was dental information given to patient?: No HPI PE HPI Details 19-year-old female with past medical history of migraines last seen 10/2024 coming in for annual exam. In review of the notes, patient was seen in [facility] 02/2025 for chest discomfort EKG revealed an incomplete right bundle branch block an echocardiogram was determined to be normal. Pesenting with migraines and follow-up on incomplete right bundle branch block. The patient experienced chest and back pain, leading to an ER visit where esophagitis was suspected due to Strattera use at bedtime, causing potential acid reflux. An EKG revealed an incomplete right bundle branch block, which was reviewed by a taxation accountant who recommended an echocardiogram. The echocardiogram showed normal heart function and structure, with no thickening of the heart luciano or valve abnormalities. The patient reports daily migraines starting in the spring, characterized by tightness and pain around the eyes, often accompanied by nausea. The patient has been using Advil for relief but is concerned about daily use due to potential interactions with spironolactone. The patient has a history of acne, currently managed with topical treatments and spironolactone, with a recent increase in dosage. eye doctor: 03/2025 pap smear: 11/2024 [facility] Medical History No known problems Surgical History [place] teeth extracted No pertinent past surgical history Family History Mother No problems noted. Father No problems noted. Maternal Grandmother Breast cancer Other Substance use disorder Social History Housing: House Alcohol intake: current Alcohol intake frequency: a few times a week Patient Tobacco Use Status: Never used Tobacco e-Cigarette/Vaping Use: Never Used Second Hand Smoke Exposure: No service: No Current occupational status: employed Cognitive needs: No Hearing needs: No Vision needs: No Female Reproductive History Menstrual Age of Menarche: 9 Questionnaire PHQ-9 Over the last 2 weeks, how often have you been bothered by any of the following problems? 1. Little interest or pleasure in doing things: not at all 2. Feeling down, depressed, or hopeless: not at all 3. Trouble falling or staying asleep, or sleeping too much: not at all 4. Feeling tired or having little energy: not at all 5. Poor appetite or overeating: not at all 6. Feeling bad about yourself - or that you are a failure or have let yourself or your family down: not at all 7. Trouble concentrating on things, such as reading the newspaper or watching television: not at all 8. Moving or speaking so slowly that other people could have noticed. Or the opposite - being so fidgety or restless that you have been moving around a lot more than usual: not at all 9. Thoughts that you would be better off or of hurting yourself in some way: not at all Total score: 0 Depression Screening Interpretation: Negative Depression Screening Done: Yes 87848 - PHQ-9 Billing: Yes Source: Developed by Drs. Sammy Nelson, Yael Abdul, Jeffrey Garcias and colleagues, with an educational naseem from [employer]. Thrive Questionnaire Date Thrive assessed: 04/22/25 I am a: Patient What is your living situation today?: I have a steady place to live Within the past 12 months, did the food you bought not last and you didn't have the money to get more?: Never true Within the past 12 months, did you worry whether your food would run out before you got money to buy more?: Never true Do you have trouble paying for medicines?: No Do you have trouble getting transportation to medical appointments?: No Do you have trouble paying your heating and electricity bill?: No Do you have trouble taking care of your child, family member or friend?: No Do you have trouble with day-to-day activities such as bathing, preparing meals, shopping, managing finances, etc.?: No Are you currently unemployed and looking for a job?: No Are you interested in more education?: No Please select the resources that you would like help with: None Currently or been in a relationship where the following occur: No concerns reported THRIVE Score: 0 AUDIT C Alcohol Use Questionnaire (AUDIT-C) 1. How often do you have a drink containing alcohol?: Monthly or less Total Score: 1 DEYSI-7 AMB Questionnaire DEYSI-7 Date DEYSI - 7 assessed: 04/22/25 Feeling nervous, anxious, or on edge: 2 = More than half the days Not being able to stop or control worryin = Not at all Worrying too much about different things: 0 = Not at all Trouble relaxin = Nearly every day Being so restless that it is hard to sit still: 2 = More than half the days Becoming easily annoyed or irritable: 3 = Nearly every day Feeling afraid as if something awful might happen: 0 = Not at all Total DEYSI-7 score (0-4 normal; 5-9 mild; 10-14 moderate; 15-21 severe): 10 Source: Developed by Drs. Sammy Nelson, Yael Abdul, Jeffrey Garcias and colleagues, with an educational naseem from [employer]. DEYSI-7 Assessment Billing DEYSI-7 Assessment Tool: DEYSI-7 Assessment 28717 Review of Systems Const Denies body aches, Denies fatigue, Denies fever(s), Denies frequent falls, Reports headache(s) and Denies weakness Eyes Reports no additional complaints and Denies change in vision ENT Denies dysphagia, Denies dizziness, Denies facial pain, Reports headache(s), Denies nasal congestion and Denies odynophagia Card Denies chest pain, Denies syncope, Denies irregular heart rhythm, Denies leg edema, Denies lightheadedness and Denies dyspnea Resp Denies cough and Denies dyspnea GI Denies constipation, Denies dysphagia, Denies dyspepsia, Denies diarrhea, Denies nausea, Denies odynophagia and Denies vomiting Denies urinary frequency, Denies dysuria, Denies urinary hesitancy and Denies urinary urgency Musc Denies back pain and Denies myalgias Skin/Breast Reports system reviewed and no additional complaints, except as documented Neuro Denies dizziness, Denies syncope, Denies frequent falls, Reports headache(s) and Denies weakness Psych Reports no additional complaints Endo Denies fatigue Physical exam (Primary Care) Vital Signs: Last Vital Signs Pulse 116 H 04/22/25 09:26 BP 118/70 04/22/25 09:26 Pulse Ox 99 04/22/25 09:26 Oxygen Delivery Method Room Air 04/22/25 09:26 BMI result Body Mass Index 21.0 Tobacco/Smoking Status: Tobacco use Status Tobacco use date assessed 04/22/25 04/22/25 09:30 Patient Tobacco Use Status Never used Tobacco 04/22/25 09:30 e-Cigarette/Vaping Use Never Used 04/22/25 09:30 PHQ-9: PHQ-9 Score PHQ-9: Total score 0 04/22/25 11:13 Depression Screening Interpretation: Negative Thrive Assessment: Date of Thrive Assessment Date Thrive assessed 04/22/25 04/22/25 09:30 Currently or been in a relationship where the following occur: No concerns reported Const General: cooperative, healthy appearing, comfortable and no acute distress Orientation/consciousness: patient oriented x3 HENMT Head: Yes normocephalic Ears: hearing grossly normal bilaterally General nose exam: Normal external nose present Face and sinus: Yes normal facial exam and Yes sinuses nontender Mouth: Normal oral and palatal mucosa present and tongue normal Throat: Yes posterior oropharynx normal Eyes General: appearance normal, both eyes and all related structures Conjunctivae: conjunctivae normal Pupils: Equal, round and reactive pupils present EOM: EOMs intact bilaterally and No Nystagmus present Neck Neck: Yes full ROM and Yes no lymphadenopathy Chest Chest palpation & inspection: normal inspection of the chest Resp Effort & Inspection: normal respiratory effort Auscultation: clear to auscultation bilaterally, no crackles, no rales, no rhonchi and no wheezes Cardio Rate: regular rate Rhythm: regular rhythm Peripheral pulses: radial pulses present and dorsalis pedis present GI Inspection: Yes normal to inspection and No Abdominal wall edema Palpation (GI): Soft to palpation, not firm and nontender Auscultation: normal bowel sounds Rectal Exam - Female: deferred General: Yes no CVA tenderness Back/Spine/Pelvis Back: no CVA tenderness Skin General skin exam: no rashes or lesions noted Neuro General: patient oriented x3 Cranial nerves: Yes Equal, round and reactive pupils present, Yes Midline tongue present, Yes Ability to bilaterally elevate shoulders present and No Nystagmus present Gait exam (Neuro): Normal gait present Extrem General: Yes normal to inspection, Yes full ROM and No edema Psych Speech and movement: Normal speech and movement present Affect: normal affect Attitude: cooperative Insight: Good insight present (Psych) Judgement: Good judgement present (Psych) Coding Level of Care Code Est Pt Prev Care 18-39y(03101) Diagnoses Adult general medical exam Z00.00 Right bundle branch block (RBBB) I45.10 Seasonal allergies J30.2 Migraines G43.909 Difficulty concentrating R41.840 Acne vulgaris L70.0 Additional Codes DESYI-7 Assessment Billing - DEYSI-7 Assessment Tool: DEYSI-7 Assessment 83144 ([id number]) PHQ-9 - 60816 - PHQ-9 Billing: Yes ([id number]) Assessment & Plan Assessment & Plan (1) Adult general medical exam: Code(s): Z00.00 - Encounter for general adult medical examination without abnormal findings Category: Medical Plan: Patient is up-to-date on all recommended routine screenings and vaccinations for her age. Blood work is up-to-date and has been reviewed with the patient today. Healthy diet and regular exercise is encouraged. (2) Right bundle branch block (RBBB): Code(s): I45.10 - Unspecified right bundle-branch block Category: Medical Plan: Patient having a right bundle-branch block and did have symptoms of chest pain several weeks ago. Plan to refer to Cardiology for further workup (3) Seasonal allergies: Code(s): J30.2 - Other seasonal allergic rhinitis Category: Medical Plan: Patient is currently using Zyrtec daily and Flonase. Advised to switch to Claritin for 1 month and then we will returned back to Zyrtec as she may be building a tolerance to Zyrtec (4) Migraines: Code(s): G43.909 - Migraine, unspecified, not intractable, without status migrainosus Category: Medical Plan: History of migraines and I believe for headaches to be multifactorial at this time. She complains of migraines 1st thing in the morning typically spread from the jaw behind the eyes. Recommend a mouth guard to be worn at nighttime as she may be grinding or clenching teeth at night, switching allergy pill as it may be sinus related, updated prescription lenses and good sleep hygiene. Given the severity of symptoms as well as the patient's concurrent tachycardia plan to prescribe propranolol 20 mg twice daily to be use as migraine prevention as well as management for tachycardia. (5) Difficulty concentrating: Code(s): R41.840 - Attention and concentration deficit Category: Medical Plan: Continue on Strattera at this time and feels it is beneficial. (6) Acne vulgaris: Code(s): L70.0 - Acne vulgaris Category: Medical Plan: Continue to follow with senior ui software engineer and currently on spironolactone as well as tretinoin cream. Plan The patient will continue to monitor the incomplete right bundle branch block with a cardiology follow-up recommended for further evaluation. An echocardiogram has already been performed, showing normal heart function and structure. The patient is advised to see a taxation accountant for a comprehensive evaluation to determine the need for ongoing monitoring or intervention. For the management of migraines, the patient is instructed to try new prescription glasses and a mouthguard to address potential contributing factors such as vision strain and jaw clenching. Additionally, the patient is advised to switch from Zyrtec to Claritin to assess any impact on headache frequency, considering the possibility of medication tolerance. If migraines persist, propranolol will be initiated as a preventative measure, starting with a low dose to monitor efficacy and side effects. The patient is encouraged to maintain dietary adjustments made with the assistance of a conductor orchestra to manage constipation effectively. For acne management, the patient will continue with spironolactone and topical treatments, with a follow-up dermatology appointment scheduled to assess treatment efficacy and side effects. This note was constructed using voice recognition software. While every effort has been made to ensure accuracy and computer technology teacher, still areas may have been included sometimes these areas may affect the content or meeting of the given symptoms. Total time spent caring for the patient today was 30 minutes. This includes time spent before the visit reviewing the chart, time spent during the visit, and time spent after the visit and documentation. Patient was informed and verbally consented to the use of an ambient scribe for clinic note documentation during this visit. Orders: Referrals Cardiology Referral I45.10 - Unspecified right bundle-branch block Medications: New propranolol 20 mg PO BID 60 tabs 0RF Discontinued omeprazole Discontinued Reason: Patient no longer taking 20 mg PO DAILY 14 days 14 caps 0RF polyethylene glycol 3350 (Miralax) Discontinued Reason: Patient no longer taking 17 grams PO DAILY 119 grams 1RF sennosides (senna) Discontinued Reason: Patient no longer taking 8.6 mg PO BEDTIME 30 caps 1RF tretinoin 0.025% Discontinued Reason: Patient no longer taking 1 appl topical BEDTIME 20 grams 0RF
[2025-04-22 09:26] VITALS: BP 118/70; PULSE 116; O2SAT 99; BMI 21.0
--- OUTSIDE RECORDS SUMMARY | 2025-04-22 09:48 | XMS_ITS ---
Author Name [facility] Organization Unknown Assessment and Plan ID Update Date Source Alert Text [facility]-[id number] 06/10/2024 [facility] COVID Vacc ination: This patient has received the [employer], [employer], COVID-19 vaccination on 06/10/2024 with lot number [id number] [address] [facility] [address]
== END 2025-04-22 10:16 | disposition home or self-care (01) ==
LOC: HO.HMCH 09:22
DX: Z00.00 Encounter for general adult medical examination without abnormal findings (principal); I45.10 Unspecified right bundle-branch block; J30.2 Other seasonal allergic rhinitis; G43.909 Migraine, unspecified, not intractable, without status migrainosus; R41.840 Attention and concentration deficit; L70.0 Acne vulgaris

== ENCOUNTER → 2025-04-22 09:22 | Outpatient (BNVA) | payer OTHER, SELFPAY | DX: Z00.00 Encounter for general adult medical examination without abnormal findings (principal); G43.909 Migraine, unspecified, not intractable, without status migrainosus; I45.10 Unspecified right bundle-branch block; J30.2 Other seasonal allergic rhinitis; L70.0 Acne vulgaris; R41.840 Attention and concentration deficit | CPT/HCPCS: 96127 ==

== ENCOUNTER 2025-07-23 08:52 | Outpatient (AMB) | payer OTHER, SELFPAY ==
--- NOTE | 2025-07-23 08:53 | A.OFFPC_ITS ---
Intake Visit Reasons: f/u migraines tele Lathe Tender Required: No Chief Cook: Not Required per policy Accompanied by: Self / Same As Patient Allergies No Known Allergies Allergy (Verified 07/23/25 08:53) Tobacco use date assessed: 04/22/25 Dental Screening Dental Screen Date: 04/22/25 HPI f/u migraines tele HPI Details 19-year-old female with past medical his tory of migraines last seen 04/2025 presenting via telehealth for follow up on migraines.? At her last visit patient was started on propranolol for migraines and palpitations.?She is also referred to Cardiology for right bundle branch block an appointment scheduled for 08/29/2025. Patient tells us today her migraines have significantly improved since initiating the propranolol. Her last migraine was several months ago and she did have a mild headache a few weeks ago that resolved with rest. She feels the propranolol has also been helping with the tachycardia. She notices a difference when she forgets to take the medication. Denies any episodes of chest pain, shortness of breath, lightheadedness or dizziness. She does have 1 concern today with the Strattera. On a few occasions she has had episodes of excessive sweating followed by chills which lasted several minutes after taking the Strattera 80 mg. Her last episode was several weeks ago this is happened 2 or 3 times. In the past she has tried taking Strattera 40 mg twice a day but this kept her up at night. [facility] Medical History No known problems Surgical History [place] teeth extracted No pertinent past surgical history Family History Mother No problems noted. Father No problems noted. Maternal Grandmother Breast cancer Other Substance use disorder Social History Housing: House Alcohol intake: current Alcohol intake frequency: a few times a week Patient Tobacco Use Status: Never used Tobacco e-Cigarette/Vaping Use: Never Used Second Hand Smoke Exposure: No service: No Current occupational status: employed Cognitive needs: No Hearing needs: No Vision needs: No Female Reproductive History Menstrual Age of Menarche: 9 Questionnaire Thrive Questionnaire Date Thrive assessed: 04/21/25 I am a: Patient What is your living situation today?: I have a steady place to live Within the past 12 months, did the food you bought not last and you didn't have the money to get more?: Never true Within the past 12 months, did you worry whether your food would run out before you got money to buy more?: Never true Do you have trouble paying for medicines?: No Do you have trouble getting transportation to medical appointments?: No Do you have trouble paying your heating and electricity bill?: No Do you have trouble taking care of your child, family member or friend?: No Do you have trouble with day-to-day activities such as bathing, preparing meals, shopping, managing finances, etc.?: No Are you currently unemployed and looking for a job?: No Are you interested in more education?: No Please select the resources that you would like help with: None Currently or been in a relationship where the following occur: No concerns reported THRIVE Score: 0 DEYSI-7 AMB Questionnaire DEYSI-7 Date DEYSI - 7 assessed: 04/22/25 Source: Developed by Drs. Sammy Nelson, Yael Abdul, Jeffrey Garcias and colleagues, with an educational naseem from [employer]. Review of Systems Const Denies body aches, Denies chills, Denies fever(s), Denies headache(s) and Denies poor appetite Eyes Reports no additional complaints ENT Denies dizziness and Denies headache(s) Card Denies chest pain, Denies lightheadedness and Denies dyspnea Resp Denies cough and Denies dyspnea GI Denies nausea and Denies vomiting Reports no additional complaints Musc Reports no additional complaints and Denies abnormal gait Skin/Breast Reports system reviewed and no additional complaints, except as documented Neuro Denies abnormal gait, Denies dizziness and Denies headache(s) Psych Reports no additional complaints Physical exam (Primary Care) Vital Signs: VS and physical exam not performed due to nature of telehealth visit. Tobacco/Smoking Status: Tobacco use Status Tobacco use date assessed 04/22/25 07/23/25 08:55 Patient Tobacco Use Status Never used Tobacco 07/23/25 08:55 e-Cigarette/Vaping Use Never Used 07/23/25 08:55 Thrive Assessment: Date of Thrive Assessment Date Thrive assessed 04/21/25 07/23/25 08:55 Currently or been in a relationship where the following occur: No concerns reported Telehealth Telehealth Telehealth Platform: Telephone Location of provider rendering services: practice address Location of patient: address on file Patient Identification confirmed using: Name, : Yes Telehealth method: voice only Patient verbally consented to treatment: Yes Patient verbally consented to billing insurance company: Yes Patient informed of any privacy concerns related to visit: Yes Coding Level of Care Code Tele Est Pt Level 3 (96542) Diagnoses Right bundle branch block (RBBB) I45.10 Migraines G43.909 Difficulty concentrating R41.840 Assessment & Plan Assessment & Plan (1) Right bundle branch block (RBBB): Code(s): I45.10 - Unspecified right bundle-branch block Category: Medical Plan: She has not had any symptoms of chest pain of shortness of breath. She has upcoming appointment with cardiology. (2) Migraines: Code(s): G43.909 - Migraine, unspecified, not intractable, without status migrainosus Category: Medical Plan: She has been taking propranolol with good benefit and she will continue on this medication at this time. (3) Difficulty concentrating: Code(s): R41.840 - Attention and concentration deficit Category: Medical Plan: She is currently on Strattera 80 mg and has been having episodes of hyperhidrosis. Plan to decrease atomoxetine to 40 mg daily and see if symptoms improve. Consider increasing to 40 mg b.i.d. with 2nd dose in the afternoon instead of nighttime. Plan This note was constructed using voice recognition software. While every effort has been made to ensure accuracy and railroad inspector, still areas may have been included sometimes these areas may affect the content or meeting of the given symptoms. Total time spent caring for the patient today was 20 minutes. This includes time spent before the visit reviewing the chart, time spent during the visit, and time spent after the visit and documentation. Medications: New atomoxetine 40 mg PO DAILY 90 caps 0RF Discontinued atomoxetine Discontinued Reason: Patient no longer taking 80 mg PO DAILY 90 caps 1RF
== END 2025-07-23 09:10 | disposition home or self-care (01) ==
LOC: HO.HMCH 08:52
DX: I45.10 Unspecified right bundle-branch block (principal); G43.909 Migraine, unspecified, not intractable, without status migrainosus; R41.840 Attention and concentration deficit

== ENCOUNTER 2025-08-29 08:52 | Outpatient (AMB) | payer OTHER, SELFPAY ==
[2025-08-29 09:03] VITALS: BP 110/60; PULSE 86; BMI 21.4
--- NOTE | 2025-08-29 09:03 | A.OFFVIS_ITS ---
Vital Signs 08/29/25 09:03 Height 5 ft 7 in Weight 136 lb 10.986 oz BMI 21.4 BP 110/60 Blood Pressure Location Lt brachial Position Sitting Pulse 86 Pulse Source Monitor Intake Visit Reasons: [employer]/ [place]/ [place] Allergies No Known Allergies Allergy (Verified 07/23/25 08:53) Medication List - Last Reconciled 08/29/25 by Delbert Oneill MD atomoxetine 40 mg PO DAILY cetirizine (Zyrtec) 10 mg PO DAILY PRN drospirenone (contraceptive) 4 mg PO DAILY 24 days fluticasone propionate 50 mcg/actuation (Flonase Allergy Relief) 1 spray intranasal DAILY 14 days magnesium 250 mg PO DAILY ondansetron 4 mg PO Q8H PRN propranolol 20 mg PO BID spironolactone 25 mg PO DAILY tretinoin 0.05% 1 appl topical BEDTIME HPI Comments Details: Sherri was referred here because of EKGs suggestive of rightward axis as well as incomplete right bundle-branch block. She subsequently had an echocardiogram which shows normal structure of the heart without any significant cardiac shunting. Patient overall says she has no symptoms. She says she runs and dances and with exercise she has no symptoms of shortness of breath or chest pain. She has notices usually higher heart rates especially when she is in stressful situation or anxious situation but with exercise or heart rate does not significantly rise. She has no lightheadedness or syncope. She says she hydrates herself well and has adequate salt intake. She has never had any other cardiac symptoms in the past. She denies any sudden fast heart rate or palpitations that bother her. No family history of premature coronary artery disease or sudden cardiac that. [facility] Medical History No known problems Surgical History [place] teeth extracted No pertinent past surgical history Family History Mother No problems noted. Father No problems noted. Maternal Grandmother Breast cancer Other Substance use disorder Social History Housing: House Alcohol intake: current Alcohol intake frequency: a few times a week Patient Tobacco Use Status: Never used Tobacco e-Cigarette/Vaping Use: Never Used Second Hand Smoke Exposure: No service: No Current occupational status: employed Cognitive needs: No Hearing needs: No Vision needs: No Female Reproductive History Menstrual Age of Menarche: 9 Review of Systems Const Reports no additional complaints and Denies weakness Eyes Reports no additional complaints ENT Denies dizziness Card Denies chest pain, Denies chest pain with activity, Denies syncope, Denies rapid heart rate, Denies pedal edema, Denies edema, Denies leg edema, Denies lightheadedness, Reports palpitations, Denies dyspnea, Denies dyspnea on exertion and Denies orthopnea Resp Denies cough, Denies dyspnea and Denies dyspnea on exertion GI Denies hematochezia and Denies change in stool character Musc Denies abnormal gait, Denies muscle cramps, Denies muscle weakness, Denies numbness, Denies radiating pain into limb and Denies tingling Neuro Denies abnormal gait, Denies dizziness, Denies syncope, Denies numbness, Denies tingling and Denies weakness Endo Reports palpitations Physical Exam Vital Signs: Last Vital Signs Pulse 86 08/29/25 09:03 BP 110/60 08/29/25 09:03 BMI result Body Mass Index 21.4 Const General: cooperative, comfortable, no acute distress, alert, awake, Physically active and well groomed Nutritional Appearance: thin Orientation/consciousness: patient oriented x3 Limitations: no limitations HEENT Head: Yes normocephalic and Yes atraumatic Neck Neck: Yes trachea midline, Yes supple and Yes no JVD Resp Effort & Inspection: normal respiratory effort Auscultation: clear to auscultation bilaterally Cardio Jugular venous distension: no JVD Rate: regular rate Rhythm: regular rhythm Heart sounds: S1 normal heart sound present, S2 normal heart sound present, no click, no gallops, no murmurs and no rubs GI Auscultation: normal bowel sounds Skin General skin exam: no rashes or lesions noted Neuro General: patient oriented x3 and no focal motor deficits Extrem General: Yes no clubbing, cyanosis or edema Psych Appearance: grossly normal Assessment & Plan Assessment & Plan (1) Incomplete right bundle branch block: Code(s): I45.10 - Unspecified right bundle-branch block Plan: Patient with finding of incomplete right bundle-branch block on serial EKGs which could be a normal variant. She had a subsequent structural imaging which shows normal echocardiogram without any evidence of intracardiac shunting. A physical exam is normal. She does not have any symptoms. Overall this incomplete right bundle-branch block appears to be a normal variant. No further workup is indicated at this point in time. She is encouraged to maintain ac tivity level as tolerated. Advised to maintain adequate hydration. Her elevated fast heart rate in stressful situation probably is normal and we discussed about stress mitigation strategies. Avoidance of excessive stimulants and energy drinks was discussed. Will follow up in the clinic if need be. Thank you for allowing me to partake in her care Coding Level of Care Code New Pt Level 3 (91212) Diagnoses Incomplete right bundle branch block I45.10
== END 2025-08-29 09:24 | disposition home or self-care (01) ==
LOC: HO.HCS 08:53
PROVIDERS: Visit Provider Internal Medicine Cardiovascular Disease
DX: I45.10 Unspecified right bundle-branch block (principal)
CPT/HCPCS: 99213